=== PATIENT | male | born 1965 | race Caucasian/White ===

== ENCOUNTER → 2016-10-18 | Outpatient (REF) | payer MEDICARE, MEDICAID ==
[2016-10-18 15:37] LABS: CALCIUM LEVEL 8.8 MG/DL (8.5-10.1); CREATININE FOR GFR 1.53 MG/DL (0.70-1.30); GLOMERULAR FILTRATION RATE 50.9 (>56); POTASSIUM SERUM 4.2 MEQ/L (3.5-5.1)
[2016-10-18 15:38] LABS: ALBUMIN 3.7 GM/DL (3.2-5.2); ALBUMIN/GLOBULIN RATIO 1.19 (1.00-1.93); BILIRUBIN,TOTAL 0.5 MG/DL (0.2-1.0); MAGNESIUM LEVEL 2.1 MG/DL (1.8-2.4); TOTAL PROTEIN 6.8 GM/DL (6.4-8.2)
== END ==
LOC: M SFHCLACO 08:17
PROVIDERS: ATTEND Physician Assistant
DX: I12.9 Hypertensive chronic kidney disease with stage 1 through stage 4 chronic kidney disease, or unspecified chronic kidney disease (principal); E78.2 Mixed hyperlipidemia; E11.22 Type 2 diabetes mellitus with diabetic chronic kidney disease; E61.2 Magnesium deficiency; E55.9 Vitamin D deficiency, unspecified; N18.3 Chronic kidney disease, stage 3 (moderate); K21.9 Gastro-esophageal reflux disease without esophagitis; E87.6 Hypokalemia

== ENCOUNTER → 2017-01-22 | Outpatient (REF) | payer MEDICARE, MEDICAID | LOC: M SFHCLACO 08:06 | PROVIDERS: ATTEND Physician Assistant | DX: I10 Essential (primary) hypertension (principal); E78.2 Mixed hyperlipidemia; E11.9 Type 2 diabetes mellitus without complications; E61.2 Magnesium deficiency; E55.9 Vitamin D deficiency, unspecified; Z53.8 Procedure and treatment not carried out for other reasons ==

== ENCOUNTER → 2017-04-30 | Outpatient (REF) | payer MEDICARE, MEDICAID ==
[2017-04-30 15:19] LABS: ALBUMIN 3.6 GM/DL (3.2-5.2); ALBUMIN/GLOBULIN RATIO 1.2 (1.00-1.93); BILIRUBIN,TOTAL 0.4 MG/DL (0.2-1.0); CREATININE FOR GFR 1.55 MG/DL (0.70-1.30); MAGNESIUM LEVEL 2.1 MG/DL (1.8-2.4); POTASSIUM SERUM 3.9 MEQ/L (3.5-5.1); TOTAL PROTEIN 6.6 GM/DL (6.4-8.2)
== END ==
LOC: M SFHCLACO 09:20
PROVIDERS: ATTEND Physician Assistant
DX: I10 Essential (primary) hypertension (principal); E78.2 Mixed hyperlipidemia; E11.9 Type 2 diabetes mellitus without complications; E61.2 Magnesium deficiency; E55.9 Vitamin D deficiency, unspecified

== ENCOUNTER → 2017-06-18 | Outpatient (REF) | payer MEDICARE, MEDICAID ==
[2017-06-18 15:18] LABS: ALBUMIN 3.6 GM/DL (3.2-5.2); ALBUMIN/GLOBULIN RATIO 1.16 (1.00-1.93); ALKALINE PHOSPHATASE 54 U/L (45-117); ALT/SGPT 23 U/L (12-78); ANION GAP 7 MEQ/L (8-16); AST/SGOT 21 U/L (7-37); BILIRUBIN,TOTAL 0.5 MG/DL (0.2-1.0); BLOOD UREA NITROGEN 21 MG/DL (7-18); CALCIUM LEVEL 9.2 MG/DL (8.5-10.1); CARBON DIOXIDE LEVEL 33 MEQ/L (21-32); CHLORIDE LEVEL 101 MEQ/L (98-107); CHOLESTEROL LEVEL 142 MG/DL (<200); CREATININE FOR GFR 1.32 MG/DL (0.70-1.30); GLOMERULAR FILTRATION RATE > 60.0 (>56); GLUCOSE, FASTING 179 MG/DL (70-105); MAGNESIUM LEVEL 2.1 MG/DL (1.8-2.4); POTASSIUM SERUM 3.9 MEQ/L (3.5-5.1); SODIUM LEVEL 141 MEQ/L (136-145); TOTAL PROTEIN 6.7 GM/DL (6.4-8.2); TRIGLYCERIDES LEVEL 191 MG/DL (<150)
== END ==
LOC: M SFHCLACO 08:33
PROVIDERS: ATTEND Physician Assistant
DX: E78.2 Mixed hyperlipidemia (principal); E11.9 Type 2 diabetes mellitus without complications; I10 Essential (primary) hypertension; E61.2 Magnesium deficiency; E55.9 Vitamin D deficiency, unspecified

== ENCOUNTER → 2017-09-10 | Outpatient (REF) | payer MEDICARE, MEDICAID ==
[2017-09-10 15:45] LABS: TOTAL 25(OH) VITAMIN D 45.9 NG/ML (30.0-100.0)
[2017-09-10 15:46] LABS: ALBUMIN 3.7 GM/DL (3.2-5.2); ALBUMIN/GLOBULIN RATIO 1.28 (1.00-1.93); ALKALINE PHOSPHATASE 51 U/L (45-117); ALT/SGPT 26 U/L (12-78); ANION GAP 8 MEQ/L (8-16); AST/SGOT 24 U/L (7-37); BILIRUBIN,TOTAL 0.6 MG/DL (0.2-1.0); BLOOD UREA NITROGEN 24 MG/DL (7-18); CALCIUM LEVEL 9.1 MG/DL (8.5-10.1); CARBON DIOXIDE LEVEL 29 MEQ/L (21-32); CHLORIDE LEVEL 101 MEQ/L (98-107); CHOLESTEROL LEVEL 124 MG/DL (<200); CHOLESTEROL RISK RATIO 5.166 (<5); CREATININE FOR GFR 1.66 MG/DL (0.70-1.30); GLOMERULAR FILTRATION RATE 46.2 (>56); GLUCOSE, FASTING 166 MG/DL (70-100); HDL CHOLESTEROL 24 MG/DL (>40); LDL CHOLESTEROL 66.4 MG/DL (<100); MAGNESIUM LEVEL 2.1 MG/DL (1.8-2.4); NON-HDL-C 100 MG/DL; POTASSIUM SERUM 4.1 MEQ/L (3.5-5.1); SODIUM LEVEL 138 MEQ/L (136-145); TOTAL PROTEIN 6.6 GM/DL (6.4-8.2); TRIGLYCERIDES LEVEL 168 MG/DL (<150)
[2017-09-10 15:57] LABS: ESTIMATED AVERAGE GLUCOSE 235 MG/DL (60-110); HEMOGLOBIN A1c 9.8 %
== END ==
LOC: M SFHCLACO 09:16
DX: E78.2 Mixed hyperlipidemia (principal); I10 Essential (primary) hypertension; E11.9 Type 2 diabetes mellitus without complications; E61.2 Magnesium deficiency; E55.9 Vitamin D deficiency, unspecified
CPT/HCPCS: 83735

== ENCOUNTER → 2017-12-19 | Outpatient (REF) | payer MEDICARE, MEDICAID ==
[2017-12-19 15:55] LABS: ALBUMIN 3.8 GM/DL (3.2-5.2); ALBUMIN/GLOBULIN RATIO 1.19 (1.00-1.93); ALKALINE PHOSPHATASE 52 U/L (45-117); ALT/SGPT 20 U/L (12-78); ANION GAP 7 MEQ/L (8-16); AST/SGOT 20 U/L (7-37); BILIRUBIN,TOTAL 0.3 MG/DL (0.2-1.0); BLOOD UREA NITROGEN 22 MG/DL (7-18); CALCIUM LEVEL 8.5 MG/DL (8.5-10.1); CARBON DIOXIDE LEVEL 27 MEQ/L (21-32); CHLORIDE LEVEL 109 MEQ/L (98-107); CHOLESTEROL LEVEL 150 MG/DL (<200); CREATININE FOR GFR 1.29 MG/DL (0.70-1.30); GLOMERULAR FILTRATION RATE > 60.0 (>56); GLUCOSE, FASTING 120 MG/DL (70-100); HDL CHOLESTEROL 25 MG/DL (>40); LDL CHOLESTEROL 89.2 MG/DL (<100); MAGNESIUM LEVEL 2.3 MG/DL (1.8-2.4); NON-HDL-C 125 MG/DL; POTASSIUM SERUM 4.1 MEQ/L (3.5-5.1); SODIUM LEVEL 143 MEQ/L (136-145); TRIGLYCERIDES LEVEL 179 MG/DL (<150)
[2017-12-19 16:00] LABS: TOTAL 25(OH) VITAMIN D 50.5 NG/ML (30.0-100.0)
[2017-12-19 16:43] LABS: ESTIMATED AVERAGE GLUCOSE 146 MG/DL (60-110); HEMOGLOBIN A1c 6.7 %
== END ==
LOC: M SFHCLACO 08:17
DX: E78.2 Mixed hyperlipidemia (principal); I10 Essential (primary) hypertension; E11.9 Type 2 diabetes mellitus without complications; E61.2 Magnesium deficiency; E55.9 Vitamin D deficiency, unspecified
CPT/HCPCS: 83735

== ENCOUNTER → 2018-03-13 | Outpatient (REF) | payer MEDICARE, MEDICAID ==
[2018-03-13 15:01] LABS: ALBUMIN 3.4 GM/DL (3.2-5.2); ALBUMIN/GLOBULIN RATIO 1.03 (1.00-1.93); ALKALINE PHOSPHATASE 55 U/L (45-117); ALT/SGPT 30 U/L (12-78); ANION GAP 10 MEQ/L (8-16); AST/SGOT 22 U/L (7-37); BILIRUBIN,TOTAL 0.4 MG/DL (0.2-1.0); BLOOD UREA NITROGEN 21 MG/DL (7-18); CALCIUM LEVEL 9.4 MG/DL (8.5-10.1); CARBON DIOXIDE LEVEL 29 MEQ/L (21-32); CHLORIDE LEVEL 106 MEQ/L (98-107); CHOLESTEROL LEVEL 142 MG/DL (<200); CHOLESTEROL RISK RATIO 4.896 (<5); CREATININE FOR GFR 1.25 MG/DL (0.70-1.30); GLOMERULAR FILTRATION RATE > 60.0 (>56); GLUCOSE, FASTING 124 MG/DL (70-100); HDL CHOLESTEROL 29 MG/DL (>40); LDL CHOLESTEROL 87.8 MG/DL (<100); NON-HDL-C 113 MG/DL; POTASSIUM SERUM 4.3 MEQ/L (3.5-5.1); SODIUM LEVEL 145 MEQ/L (136-145); TOTAL PROTEIN 6.7 GM/DL (6.4-8.2); TRIGLYCERIDES LEVEL 126 MG/DL (<150)
[2018-03-13 15:03] LABS: TOTAL 25(OH) VITAMIN D 55.2 NG/ML (30.0-100.0)
[2018-03-13 15:11] LABS: ESTIMATED AVERAGE GLUCOSE 154 MG/DL (60-110)
== END ==
LOC: M SFHCLACO 08:15
DX: E78.2 Mixed hyperlipidemia (principal); E11.22 Type 2 diabetes mellitus with diabetic chronic kidney disease; E61.2 Magnesium deficiency; E55.9 Vitamin D deficiency, unspecified; N18.3 Chronic kidney disease, stage 3 (moderate)
CPT/HCPCS: 83735

== ENCOUNTER → 2018-04-17 | Outpatient (REF) | payer MEDICARE, MEDICAID | LOC: M SFHCLACO 17:37 | DX: R21 Rash and other nonspecific skin eruption (principal); L29.9 Pruritus, unspecified | CPT/HCPCS: 88305 ==

== ENCOUNTER 2019-10-04 19:12 | Emergency (ER) | payer MEDICARE, MEDICAID ==
[2019-10-04] MEDS ORDERED: OMEP10CASR PO (19:45)
[2019-10-04] MEDS ORDERED: PRED20TA PO (19:45)
[2019-10-04] MEDS ORDERED: TRAM50TA2 PO (19:45)
[2019-10-04] MEDS ORDERED: MAGN200T10 PO (19:45)
[2019-10-04] MEDS ORDERED: JARD1TAB PO (19:45)
[2019-10-04] MEDS ORDERED: FENO200C PO (19:45)
[2019-10-04] MEDS ORDERED: SIMV20TA22 PO (19:45)
[2019-10-04] MEDS ORDERED: CYCL10TA PO (19:45)
[2019-10-04] MEDS ORDERED: LISI40TA PO (19:45)
[2019-10-04] MEDS ORDERED: METO100T5 PO (19:45)
[2019-10-04] MEDS ORDERED: FAMO40TA3 PO (19:45)
[2019-10-04] MEDS ORDERED: GABA600T4 PO (19:45)
[2019-10-04] MEDS ORDERED: GLIM4TAB5 PO (19:45)
[2019-10-04] MEDS ORDERED: AMLO5TAB6 PO (19:45)
[2019-10-04] MEDS ORDERED: ECOT81TA5 PO (19:45)
[2019-10-04] MEDS ORDERED: MORPHINE 10 MG/ML 1ML VIAL (J2270) IM ONE (20:15)
--- NOTE | 2019-10-04 20:56 | REPVR ---
PROCEDURE INFORMATION: Exam: CT Lumbar Spine Without Contrast Exam date and time: 10/04/2019 8:19 PM Age: 54 years old Clinical indication: Low back pain; Additional info: Severe pain, right radiculopathy TECHNIQUE: Imaging protocol: Computed tomography images of the lumbar spine without contrast. Radiation optimization: All CT scans at this facility use at least one of these dose optimization techniques: automated exposure control; mA and/or kV adjustment per patient size (includes targeted exams where dose is matched to clinical indication); or iterative reconstruction. COMPARISON: No relevant prior studies available. FINDINGS: Vertebrae: Disc space narrowing at L2-L3 and to a lesser degree L3-L4 with a retrolisthesis of L2 on L3. Discs/Spinal canal/Neural foramina: There is a moderate to severe central central spinal stenosis at L2-L3 secondary to diffuse annular bulging, thickened ligamentum flavum without facet joint arthropathy. There is a severe central central spinal stenosis at L3-L4 secondary to diffuse annular bulging, thickened ligamentum flavum with mild facet joint arthropathy. There is a severe central central spinal stenosis at L4-L5 secondary to diffuse annular bulging, thickened ligamentum flavum with mild facet joint arthropathy. Bulging annulus L5-S1 without significant neural compromise. Soft tissues: Unremarkable. IMPRESSION: Moderate to severe central spinal stenosis L2-L3, severe central spinal stenosis L3-L4, severe central spinal stenosis at L4-L5. Electronically signed by: Mati Linder On 10/04/2019 20:55:47 PM
[2019-10-04] MEDS ORDERED: PERC5TAB12 PO (21:45)
[2019-10-04 21:57] VITALS: BP 173/89
== END 2019-10-04 21:59 | disposition home or self-care (01) ==
LOC: M ED 19:12
DX: M51.16 Intervertebral disc disorders with radiculopathy, lumbar region (principal); M48.061 Spinal stenosis, lumbar region without neurogenic claudication; Z91.030 Bee allergy status
CPT/HCPCS: 72131; 99284; J2270

== ENCOUNTER 2019-10-07 02:18 | Inpatient (IN) | payer MEDICARE, MEDICAID ==
[~2019-10-07] VITALS: Ht 175.3 cm; Wt 126.4 kg
[~2019-10-07 02:18] MED LIST: AMLO5TAB6 PO; CYCL10TA PO; ECOT81TA5 PO; FAMO40TA3 PO; FENO200C PO; GABA600T4 PO; GLIM4TAB5 PO; JARD1TAB PO; LISI40TA PO; MAGN200T10 PO; METO100T5 PO; OMEP10CASR PO; PERC5TAB12 PO; PRED20TA PO; SIMV20TA22 PO; TRAM50TA2 PO
[2019-10-07 03:02] LABS: BASO # 0.1 10^3/uL (0.0-0.2); BASO % 0.7 % (0.0-1.0); EOS # 0.2 10^3/uL (0.0-0.5); EOS % 1.1 % (0.0-3.0); HEMATOCRIT 62.8 % (42.0-52.0); LYMPH # 3.7 10^3/uL (1.5-5.0); LYMPH % 23.6 % (24.0-44.0); MEAN CORPUSCULAR HEMOGLOBIN 28.1 pg (27.0-33.0); MEAN CORPUSCULAR VOLUME 87.8 fl (80.0-96.0); MONO # 1.3 10^3/uL (0.0-0.8); MONO % 8.4 % (0.0-5.0); NEUTROPHILS # 10.2 10^3/uL (1.5-8.5); NEUTROPHILS % 65.1 % (36.0-66.0); PLATELET COUNT, AUTOMATED 250 10^3/uL (150-450); RED BLOOD COUNT 7.15 10^6/uL (4.30-6.10); WHITE BLOOD COUNT 15.7 10^3/uL (4.0-10.0)
[2019-10-07 03:11] LABS: INR 1.01
[2019-10-07 03:12] LABS: PARTIAL THROMBOPLASTIN TIME 27.2 SECONDS (25.0-38.4)
[2019-10-07 03:13] LABS: HEMOGLOBIN 20.1 g/dl (13.5-17.5)
[2019-10-07] MEDS ORDERED: KETAMINE HCL IV ONE (03:15)
[2019-10-07] MEDS ORDERED: NS 500 ML IV ONE (03:15)
[2019-10-07] MEDS ORDERED: NS IV ONE (03:15)
--- NOTE | 2019-10-07 03:32 | IPNPDOC ---
Text Note Date of Service The patient was seen on 10/07/19. NOTE Time of service 5:25 AM Mr. Doyle is a 54 yr old smoker w a PMH of HTN, Dyslipidemia, NIDDM, & obesity who is admitted for management of acute on chronic back pain. 1.Back pain - pain meds / f/u w Dr.Mollison Sarah 2.Erythrocytosis likely 2/2 smoking and untreated sleep apnea - smoking cessation education / plans to have overnight sleep study soon rest per 's note VS,Fishbone, I+O VS, Fishbone, I+O Laboratory Tests 10/07/19 02:44 Vital Signs Date Time Temp Pulse Resp B/P (MAP) Pulse Ox O2 Delivery O2 Flow Rate FiO2 10/07/19 02:29 98.1 125 20 142/79 (100) 98 Room Air DOMENICO MARES MD Oct 07, 2019 03:32
[2019-10-07 03:38] LABS: BLOOD UREA NITROGEN 16 MG/DL (7-18); CALCIUM LEVEL 9.3 MG/DL (8.5-10.1); CARBON DIOXIDE LEVEL 30 MEQ/L (21-32); CHLORIDE LEVEL 106 MEQ/L (98-107); CREATININE FOR GFR 1.23 MG/DL (0.70-1.30); GLOMERULAR FILTRATION RATE > 60.0 (>56); GLUCOSE, FASTING 196 MG/DL (70-100); POTASSIUM SERUM 4.4 MEQ/L (3.5-5.1); SODIUM LEVEL 146 MEQ/L (136-145)
[2019-10-07] MEDS: LIDOCAINE 5% (LIDODERM) PATCH TD SCH (03:45)
[2019-10-07] MEDS ORDERED: JARD1TAB PO (03:46)
[2019-10-07] MEDS ORDERED: AMLO5TAB6 PO (03:46)
[2019-10-07] MEDS ORDERED: LISI40TA PO (03:46)
[2019-10-07] MEDS ORDERED: PERC5TAB12 PO (03:46)
[2019-10-07] MEDS ORDERED: FENO200C PO (03:46)
[2019-10-07] MEDS ORDERED: ASPI-161 PO (03:46)
[2019-10-07] MEDS ORDERED: ZOCO20TA PO (03:46)
[2019-10-07] MEDS ORDERED: METO100T5 PO (03:46)
[2019-10-07] MEDS ORDERED: MAGN400T3 PO (03:46)
[2019-10-07] MEDS ORDERED: GLIM4TAB5 PO (03:46)
[2019-10-07] MEDS ORDERED: OMEP1CAP73 PO (03:46)
[2019-10-07] MEDS ORDERED: FAMO40TA3 PO (03:46)
[2019-10-07] MEDS ORDERED: GABA600T4 PO ×2 (03:46)
[2019-10-07] MEDS ORDERED: TRAM50TA2 PO (03:47)
[2019-10-07] MEDS ORDERED: CYCL10TA PO (03:47)
[2019-10-07 04:45] VITALS: BP 140/68
[2019-10-07] MEDS ORDERED: GLUCOSE 4 GM CHEW TABLET PO PRN (04:45)
[2019-10-07] MEDS ORDERED: PERCOCET 5MG/325MG TAB PO PRN ×2 (04:45→07:45)
[2019-10-07] MEDS ORDERED: GLUCAGON FOR INJ 1 MG VIAL (J1610) SC PRN (04:45)
[2019-10-07] MEDS ORDERED: DEXTROSE 50% 50 ML SYRINGE IV PRN (04:45)
--- NOTE | 2019-10-07 04:56 | HPEPDOC ---
[facility] Medical History & Physical Date of Admission Oct 07, 2019 Date of Service: Oct 07, 2019 Primary Care Physician: Lori Cruz PA-C, LAC Attending Physician: DOMENICO MARES MD History and Physical CHIEF COMPLAINT: Intractable back pain HISTORY OF PRESENT ILLNESS: Patient is a 54-year-old male who presents to the emergency room after a 3 week long history of severe lower back pain with radiation down his right leg. Patient states that he has history of chronic back pain however, about 3 weeks ago he woke up and started experiencing worsening back pain and radiation of the pain down his right leg. Patient states it has been difficult to walk as when he puts his leg on the ground, it becomes very sore. Patient says that he feels like his leg is going to give out on him. Patient says the pain goes down the outside of his right leg down to the hauser bone. Patient recently went to see his primary care provider for prednisone. Decrease his prednisone did not help with his pain. Patient says today his pain so bad that he unable to walk so he came to the emergency room. In the emergency room, patient is not ill and after medication, his pain is slightly better contr ol however, he says it is difficult for him to walk and move around on the stretcher. Patient is also found to have an elevated hemoglobin on laboratory studies. Patient states that he had a nocturnal pulse oximetry test that was positive and they wanted to come be fully evaluated for sleep study however, this has not been done yet due to the patient's back pain. REVIEW OF SYSTEMS: General: Patient denies fevers, chills, night sweats, unintentional weight loss HEENT: Patient denies headaches, changes in vision, sore throat. Cardiovascular: Patient denies chest pain, chest pressure, or palpitations Respiratory: Patient denies shortness of breath, cough GI: Patient denies abdominal pain, nausea, vomiting, diarrhea : Patient denies pain or difficulty with urination Neurological: Patient denies numbness or tingling in extremities Extremities: Patient endorses pain going down his right extremity Skin: Patient denies any rashes or lesions. Hematologic: Patient denies any easy bruising. Lymphatic: Patient denies any lumps in his neck, axilla, or groin. PAST MEDICAL HISTORY: 1. Hypertension. 2. Hyperlipidemia. 3. Chronic back pain. 4. Right kidney disease stage III 5. Diabetes mellitus type 2 6. Gastroesophageal reflux disease PAST SURGICAL HISTORY: 1. Orchidopexy 1975 SOCIAL HISTORY: Patient lives at home as well as and smokes one pack of cigarettes a day. Patient denies drinking or illicit drug use. 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 HOME MEDICATIONS: Please see below. PHYSICAL EXAMINATION: VITAL SIGNS: Temperature 98.1, pulse 109, respiratory rate 20, blood pressure 154/76, pulse oximetry 95% on room air. General: Alert and oriented male patient who is lying on his left side on the stretcher. Patient appeared to be in any acute distress while laying still both having a difficult time moving around the stretcher. HEENT: Normocephalic, atraumatic, moist mucous membranes, posterior pharynx was nonerythematous. Neck: No lymphadenopathy, thyromegaly Cardiac: Regular rate and rhythm, no murmurs, normal S1, normal S2 Pulm: Clear to auscultation bilaterally. No wheezes, rhonchi, rales Abd: Nondistended, nontender to palpation, normal bowel sounds Ext: No edema bilateral lower extremities Neuro: Patient equal strength in lower extremities bilaterally. Patient reported equal sensation to light touch in the lower extremity. Patient's reflexes were unable to be elicited as patient had a difficult time relaxing Skin: Skin of the arms, lower legs, abdomen, back, head and neck were examined did not show any evidence of rash or lesions. LABORATORY DATA: See below. IMAGING: Imaging is been performed. A CT of the lumbar spine performed on 10/04/2019 during an emergency room visit a few days prior to admission was reported to show moderate to severe central spinal stenosis L2-L3, severe central spinal stenosis L3-L4, severe central spinal stenosis at L4-L5 MICROBIOLOGY: Please see below. ASSESSMENT: Patient is a 54-year-old male presents to the emergency department with intractable back pain. Patient was also found to have elevated hemoglobin on laboratory studies. Patient will be admitted to medical surgical floor for further workup and pain control. PLAN: 1. Intractable back pain. Patient is a chronic back pain for many years however, he says he is having an acute flare of his pain over the last 3 weeks. Patient was unable to walk earlier today which is primarily in the emergency room. Patient will receive pain control with tramadol or Percocet depending on his pain level. Patient's gabapentin has been increased to 900 mg 3 times a day. Duloxetine can be added if the patient still is having difficulties with pain. 1 dose of 800 mg ibuprofen is also been ordered. Patient was given ketamine in the emergency department which did help with his pain. Orthopedic surgery has been consulted and will see the patient. Physical therapy will work with the patient as well. 2. Polycythemia patient's hemoglobin was 20.1 and hematocrit of 62.8. Patient also leukocytosis of 15.7 however, usually with hemoconcentration secondary to dehydration, patient's hemoglobin still very elevated. Patient does appear to have sleep apnea however, has not had a formal sleep study to fully diagnose this. Patient did have a positive nocturnal oximetry study performed in the past few weeks. Patient is also a smoker smoking about 1 pack a day. Patient is on low-dose aspirin prior to coming to the hospital which can help lower his risk for adverse events secondary to his polycythemia. Repeat CBC has been ordered fo r her noon time today 3. Diabetes mellitus. Patient is on a consistent carbohydrate diet, will receive fingersticks before meals at bedtime and is on a sliding scale. Follow up A1C. 4. Hypertension. Patient's home medications of amlodipine 5 mg, lisinopril 80 mg, metoprolol 100 mg twice a day have been ordered. 5. Hyperlipidemia. Home simvastatin 20 mg will be continued. 6. Reflux. Continue home Pepcid and omeprazole. 7. Morbid Obesity. He has co-existing DM and BENJAMIN which complicate his care. He can follow up with his PCP for a recreation superintendent consult and possibly Bariatric surgery referal. 8. DVT prophylaxis: Lovenox 9. CODE STATUS: Full code Vital Signs Vital Signs Date Time Temp Pulse Resp B/P (MAP) Pulse Ox O2 Delivery O2 Flow Rate FiO2 10/07/19 04:30 109 20 154/76 (102) 95 Room Air 10/07/19 02:29 98.1 Laboratory Data Labs 24H Laboratory Tests 2 10/07/19 02:44: Immature Granulocyte % (Auto) 1.1, Neutrophils (%) (Auto) 65.1, Lymphocytes (%) (Auto) 23.6L, Monocytes (%) (Auto) 8.4H, Eosinophils (%) (Auto) 1.1, Basophils (%) (Auto) 0.7, Neutrophils # (Auto) 10.2H, Lymphocytes # (Auto) 3.7, Monocytes # (Auto) 1.3H, Eosinophils # (Auto) 0.2, Basophils # (Auto) 0.1, Nucleated Red Blood Cells % (auto) 0.0, Prothrombin Time 13.0, Prothromb Time International Ratio 1.01, Activated Partial Thromboplast Time 27.2, Anion Gap 10, Glomerular Filtration Rate > 60.0, Calcium Level 9.3 CBC/BMP Laboratory Tests 10/07/19 02:44 Home Medications Scheduled Amlodipine Besylate (Amlodipine Besylate) 5 Mg Tablet, 5 MG PO DAILY Aspirin (Aspirin EC) 81 Mg Tablet.dr, 81 MG PO DAILY Empagliflozin (Jardiance) 10 Mg Tablet, 10 MG PO DAILY Famotidine (Famotidine) 40 Mg Tablet, 20 MG PO DAILY Fenofibrate,Micronized (Fenofibrate) 200 Mg Capsule, 200 MG PO QHS Gabapentin (Gabapentin) 600 Mg Tablet, 600 MG PO BID MORNING AND NOON Gabapentin (Gabapentin) 600 Mg Tablet, 600 MG PO QHS Glimepiride (Glimepiride) 4 Mg Tablet, 4 MG PO BID Lisinopril (Lisinopril) 40 Mg Tablet, 80 MG PO DAILY Magnesium Oxide (Magnesium Oxide) 400 Mg Tablet, 400 MG PO DAILY Metoprolol Tartrate (Metoprolol Tartrate) 100 Mg Tablet, 100 MG PO BID Omeprazole (Omeprazole) 20 Mg Capsule.dr, 20 MG PO DAILY Simvastatin (Zocor) 20 Mg Tablet, 20 MG PO QHS Scheduled PRN Cyclobenzaprine HCl (Cyclobenzaprine HCl) 10 Mg Tablet, 10 MG PO TID PRN for MUSCLE SPASMS ON HOLD FOR NOW Oxycodone HCl/Acetaminophen (Percocet 5-325 mg Tablet) 1 Each Tablet, 1 TAB PO Q6H PRN for PAIN Tramadol HCl (Tramadol HCl) 50 Mg Tablet, 100 MG PO TID PRN for PAIN ON HOLD FOR NOW Allergies Coded Allergies: bee venom protein (honey bee) (Verified Allergy, Severe, ANAPHYLAXIS, 10/04/19) spider venom (Verified Allergy, Severe, ANAPHYLAXIS, 10/04/19) A-FIB/CHADSVASC A-FIB History Current/History of A-Fib/PAF?: No GME ATTESTATION GME ATTESTATION My faculty preceptor for this patient encounter was physically present during the encounter and was fully available. All aspects of the patient interview, examination, medical decision making process, and medical care plan development were reviewed and approved by the faculty preceptor. The faculty preceptor is aware and concurs with the plan as stated in the body of this note and will attest to such by his/her cosignature. ATTENDING NOTE I reviewed and admitted to Dr. Hills's note and agree with the findings as documented. MAGALIS HILLS DO Oct 07, 2019 04:56 DOMENICO MARES MD Oct 07, 2019 05:36
[2019-10-07] MEDS: traMADol 50 MG TAB PO PRN ×2 (05:24→20:47)
[2019-10-07] MEDS ORDERED: IBUPROFEN 800 MG TAB PO ONE (05:30)
[2019-10-07] MEDS: ENOXAPARIN 40 MG/0.4 ML SYRINGE (J1650) SC SCH (08:28)
[2019-10-07] MEDS: HumaLOG INSULIN (NovoLOG) PER UNIT SC SCH ×4 (08:28→20:47)
[2019-10-07] MEDS: lisinopriL 40 MG TAB PO SCH (08:29)
[2019-10-07] MEDS: GABAPENTIN 300 MG CAP PO SCH ×3 (08:29→20:47)
[2019-10-07] MEDS: OMEPRAZOLE 20 MG CAP PO SCH (08:29)
[2019-10-07] MEDS: ASPIRIN 81 MG ENTERIC TAB PO SCH (08:29)
[2019-10-07] MEDS: FAMOTIDINE 20 MG TAB PO SCH (08:30)
[2019-10-07] MEDS: METOPROLOL TARTRATE 100 MG TAB PO SCH ×2 (08:30→20:46)
[2019-10-07] MEDS: amLODIPine 5 MG TAB PO SCH (08:30)
[2019-10-07] MEDS: MAGNESIUM OXIDE 400 MG TAB (MAG-OX) PO SCH (08:30)
--- NOTE | 2019-10-07 08:47 | CR ---
DATE OF CONSULTATION: 10/07/2019 CHIEF COMPLAINT: Right leg pain. HISTORY OF PRESENT ILLNESS: This 54-year-old man has had a few weeks now of back pain and right leg symptoms. He has pain going down from the lower back all the way down to the leg mostly on the lateral side down to the dorsolateral foot. He has an appointment see Dr. Boland this Saturday, apparently. Feels like a shooting pain down his leg. It is not associated with any decreased sensation or weakness in legs. He still is able to ambulate to the washroom. He presented to the emergency department late last night. He was admitted to the hospitalist service. He has been started of pain control. He has no bowel or bladder symptoms. No loss of control. No perianal numbness and no constitutional symptoms. PAST MEDICAL HISTORY INCLUDES: 1. Hypertension. 2. Dyslipidemia. 3. Chronic back pain. 4. Chronic kidney disease (CKD) stage III. 5. Type 2 diabetes 6. Gastroesophageal reflux disease (GERD). MEDICATIONS INCLUDE: - amlodipine - ASA - Empagliflozin - famotidine - fenofibrate - gabapentin - glimepiride - lisinopril - magnesium oxide - metoprolol - omeprazole - simvastatin ALLERGIES: Bee venom and spider venom. SOCIAL HISTORY: The patient lives at home. Smokes a pack of cigarettes a day. Denies alcohol or drug use. PHYSICAL EXAM: Vital signs: Stable. The patient is laying on his left side in bed. He has only slight lumbar spine tenderness in the midline around L4, otherwise no steps or gaps. No pain off midline. He has normal sensations to his lower extremities, L2-S1. Good strength from L2 to S1. Slightly diminished on the right side due to pain at L3. No clonus. Plantar's are downgoing. Reflexes include coapt to the knees and ankles. Normal perianal sensation. CT of the lumbar spine was performed 3 days ago on 10/04/2019. This shows moderate to severe central spinal stenosis L2-L3, severe central spinal stenosis L3-L4, severe spinal stenosis at L4-L5. ASSESSMENT/PLAN: This 54-year-old man appears to be having lumbar radiculopathy. He has no obvious signs of cauda equina syndrome. Recommended pain control consultation with pain management as well as the lumbar spine MRI to fully characterize the disc herniations and amount of compression to this. The hospitalist service is actively managing the patient as well. In addition, I recommend consultation with Dr. Boland. I will let him know about the patient as the patient was scheduled to see him on Saturday as well and perhaps he can suggest any other modalities to help control this man's pain and discomfort.
[2019-10-07] MEDS ORDERED: GABAPENTIN 300 MG CAP PO SCH ×2 (09:00→21:00)
[2019-10-07 09:10] LABS: HEMATOCRIT 58.7 % (42.0-52.0); HEMOGLOBIN 19.1 g/dl (13.5-17.5); MEAN CORPUSCULAR HGB CONC 32.5 g/dl (32.0-36.5); MEAN CORPUSCULAR VOLUME 86.2 fl (80.0-96.0); PLATELET COUNT, AUTOMATED 232 10^3/uL (150-450); RED BLOOD COUNT 6.81 10^6/uL (4.30-6.10); WHITE BLOOD COUNT 15.1 10^3/uL (4.0-10.0)
[2019-10-07] MEDS: PERCOCET 5MG/325MG TAB PO PRN ×2 (09:20→17:19)
[2019-10-07 09:32] LABS: BLOOD UREA NITROGEN 16 MG/DL (7-18); CALCIUM LEVEL 8.8 MG/DL (8.5-10.1); CARBON DIOXIDE LEVEL 25 MEQ/L (21-32); CHLORIDE LEVEL 107 MEQ/L (98-107); CREATININE FOR GFR 0.91 MG/DL (0.70-1.30); GLOMERULAR FILTRATION RATE > 60.0 (>56); GLUCOSE, FASTING 167 MG/DL (70-100); MAGNESIUM LEVEL 2.5 MG/DL (1.8-2.4); POTASSIUM SERUM 4.1 MEQ/L (3.5-5.1); SODIUM LEVEL 141 MEQ/L (136-145)
[2019-10-07 12:08] LABS: HEMATOCRIT 58.2 % (42.0-52.0); HEMOGLOBIN 18.8 g/dl (13.5-17.5); MEAN CORPUSCULAR HEMOGLOBIN 28.2 pg (27.0-33.0); MEAN CORPUSCULAR HGB CONC 32.3 g/dl (32.0-36.5); MEAN CORPUSCULAR VOLUME 87.4 fl (80.0-96.0); PLATELET COUNT, AUTOMATED 266 10^3/uL (150-450); RED BLOOD COUNT 6.66 10^6/uL (4.30-6.10); WHITE BLOOD COUNT 14.2 10^3/uL (4.0-10.0)
--- NOTE | 2019-10-07 12:35 | REPVR ---
PROCEDURE INFORMATION: Exam: MR Lumbar Spine Without Contrast. Exam date and time: 10/07/2019 11:19 AM Age: 54 years old Clinical indication: Lumbago with sciatica; Patient HX: Severe pain down right leg. ; Additional info: Back pain / spinal stenosis TECHNIQUE: Imaging protocol: Multiplanar magnetic resonance images of the lumbar spine without intravenous contrast. COMPARISON: CT Spine, lumbar w/o contrast 10/04/2019 8:03 PM FINDINGS: Vertebrae: No acute compression fracture is seen. Bone marrow signal is within normal limits. Spinal cord: The conus medullaris terminates at the T12-L1 level. There is no evidence of arachnoiditis or cauda equina compression. L1-L2: There is mild facet arthropathy. There is no significant spinal canal or neural foraminal stenosis. L2-L3: There is mild circumferential disc bulging and facet arthropathy. This is causing mild spinal canal stenosis and minimal bilateral neural foraminal narrowing. L3-L4: There is minimal circumferential disc bulging and mild facet arthropathy. This is causing minimal spinal canal stenosis and minimal left neural foraminal narrowing. L4-L5: There is moderate circumferential disc bulging with a superimposed right foraminal disc protrusion. Right foraminal disc material is migrating cranially roughly 7 mm from the level of the disc. Moderate facet arthropathy, congenitally shortened pedicles, and thickening of the ligamentum flavum is also noted. This is causing moderate spinal canal stenosis severe right neural foraminal narrowing, and moderate left neural foraminal narrowing. There is compression of the exiting right L4 nerve within the neural foramina. L5-S1: Mild circumferential disc bulging with a superimposed tiny central disc protrusion and central annular fissure. Mild facet arthropathy is also noted. There is no significant spinal canal or neural foraminal stenosis. Soft tissues: Subcutaneous edema is present in the lower back. IMPRESSION: 1. Degenerative changes of the lumbar spine as discussed above 2. Right foraminal disc protrusion at L4-L5 causing severe foraminal stenosis and compression of the exiting L4 nerve Electronically signed by: Khris Garzon On 10/07/2019 12:35:38 PM
--- NOTE | 2019-10-07 13:48 | IPNPDOC ---
Text Note Date of Service The patient was seen on 10/07/19. NOTE Subjective: Patient is a 54-year-old male with a PMHx HTN, DLP, DM2, Chronic back pain, CKD3, GERD who presented to the ER with complaints of severe lower back pain with radiation down his right leg. Patient notes that he's been extrinsic chronic back pain and has been following with pain management in [place]. . She was scheduled to receive a joint injection on Saturday. However, he noted his pain was intolerable and presented to the emergency room for further evaluation. Patient has been admitted to hospitalist service for further evaluation and treatment. Orthopedic surgery was called on consultation. Pain management was consulted as well. Patient was seen and examined at the bedside. Currently, patient reports asymptomatic significant back pain medications and continued. He was started on Percocet with minimal relief. Patient denies chest pain, shortness breath, palpitations, nausea, vomiting and pain, diarrhea, or urinary discomfort. Objective: Vitals (See below) General: Lying in bed, no acute distress, comfortable, AAOx3 HEENT: NC, AT CVS: +S1S2 Lungs: Fair air entry b/l, no appreciable wheezing, rhonchi, rales Abdomen: Soft, ND, NT Extremities: - Edema, - Calf tenderness Assessment and plan: Intractable back pain - likely 2/2 severe spinal stenosis - Presented to the ER with persistent back pain and reported inability to ambulate; given his history of chronic back pain - Follows with pain management as an outpatient and [place]; was scheduled to receive an injection this Saturday - CT L Spine 10/04: Moderate to severe central spinal stenosis L2-L3, severe central spinal stenosis L3-L4, severe central spinal stenosis at L4-L5. - MRI L spine 10/04: 1. Degenerative changes of the lumbar spine as discussed above 2. Right foraminal disc protrusion at L4-L5 causing severe foraminal stenosis and compression of the exiting L4 nerve - c/w current pain regimen - Orthopedic surgery on consultation; appreciate their input - Pain management consulted Polycythemia - likely 2/2 BENJAMIN - Patient is scheduled to receive his formal sleep study in [place] - c/w ASA 81 DM2 - A1c of 10.0 - c/w ISS HTN - BP well controlled - c/w Amlodipine, Lisinopril, Metoprolol DLP - c/w Simvastatin Morbid Obesity - Complicating medical care GERD - c/w Omeprazole and Famotidine DVT prophylaxis - c/w Lovenox VS,Fishbone, I+O VS, Fishbone, I+O Laboratory Tests 10/07/19 02:44 10/07/19 08:52 10/07/19 11:43 Vital Signs Date Time Temp Pulse Resp B/P (MAP) Pulse Ox O2 Delivery O2 Flow Rate FiO2 10/07/19 11:29 16 10/07/19 08:30 107 140/68 10/07/19 04:45 94 Room Air 10/07/19 04:45 98.2 I&O- Last 24 Hours up to 6 AM 10/07/19 06:00 Intake Total 910.3 ml Balance 910.3 ml PIYUSH KEENAN MD Oct 07, 2019 13:48
[2019-10-07 14:00] VITALS: BP 151/85
--- NOTE | 2019-10-07 15:23 | CR.PDOC ---
[facility] Pain Clinic Consultation General Date of Consultation: 10/07/19 Chief Complaint The patient is a 54-year-old male admitted with a reason for visit of Intractable Low Back Pain. History of Present Illness 54 year old male with intractable back pain. He was started on Percocet upon becoming inpatient and feels this medication has been helpful in reducing his pain. He is also currently taking Gabapentin and Flexeril. He does admit to an upcoming appt with a pain clinic. Home Medications Scheduled Amlodipine Besylate (Amlodipine Besylate) 5 Mg Tablet, 5 MG PO DAILY, (Reported) Aspirin (Aspirin EC) 81 Mg Tablet.dr, 81 MG PO DAILY, (Reported) Empagliflozin (Jardiance) 10 Mg Tablet, 10 MG PO DAILY, (Reported) Famotidine (Famotidine) 40 Mg Tablet, 20 MG PO DAILY, (Reported) Fenofibrate,Micronized (Fenofibrate) 200 Mg Capsule, 200 MG PO QHS, (Reported) Gabapentin (Gabapentin) 600 Mg Tablet, 600 MG PO BID, (Reported) MORNING AND NOON Gabapentin (Gabapentin) 600 Mg Tablet, 600 MG PO QHS, (Reported) Glimepiride (Glimepiride) 4 Mg Tablet, 4 MG PO BID, (Reported) Lisinopril (Lisinopril) 40 Mg Tablet, 80 MG PO DAILY, (Reported) Magnesium Oxide (Magnesium Oxide) 400 Mg Tablet, 400 MG PO DAILY, (Reported) Metoprolol Tartrate (Metoprolol Tartrate) 100 Mg Tablet, 100 MG PO BID, (Reported) Omeprazole (Omeprazole) 20 Mg Capsule.dr, 20 MG PO DAILY, (Reported) Simvastatin (Zocor) 20 Mg Tablet, 20 MG PO QHS, (Reported) Scheduled PRN Cyclobenzaprine HCl (Cyclobenzaprine HCl) 10 Mg Tablet, 10 MG PO TID PRN for MUSCLE SPASMS, (Reported) ON HOLD FOR NOW Oxycodone HCl/Acetaminophen (Percocet 5-325 mg Tablet) 1 Each Tablet, 1 TAB PO Q6H PRN for PAIN, (Reported) Tramadol HCl (Tramadol HCl) 50 Mg Tablet, 100 MG PO TID PRN for PAIN, (Reported) ON HOLD FOR NOW Allergies Coded Allergies: bee venom protein (honey bee) (Verified Allergy, Severe, ANAPHYLAXIS, 10/04/19) spider venom (Verified Allergy, Severe, ANAPHYLAXIS, 10/04/19) Social History Social History Denies tobacco, alcohol, or illicit substance abuse. Review of Systems Subjective Constitutional: Denies: chills, fever HEENT: Denies: head aches, vision problems Skin: Denies: rash Cardiovascular: Denies: chest pain Gastrointestinal: Denies: abdominal pain, constipation, diarrhea Musculoskeletal: Reports: other (Back pain) Physical Examination Physical Examination Vital Signs/I&O Vital Signs Date Time Temp Pulse Resp B/P (MAP) Pulse Ox O2 Delivery O2 Flow Rate FiO2 10/07/19 14:00 98.4 90 18 151/85 (107) 95 Room Air I&O- Last 24 Hours up to 6 AM 10/07/19 06:00 Intake Total 910.3 ml Balance 910.3 ml General Exam: Positive: alert, attentive Chest Exam: Positive: Clear to auscultation Heart Exam: Positive: Regular rate and rhythm Laboratory Data Labs 24H Laboratory Tests 2 10/07/19 02:44: Immature Granulocyte % (Auto) 1.1, Neutrophils (%) (Auto) 65.1, Lymphocytes (%) (Auto) 23.6L, Monocytes (%) (Auto) 8.4H, Eosinophils (%) (Auto) 1.1, Basophils (%) (Auto) 0.7, Neutrophils # (Auto) 10.2H, Lymphocytes # (Auto) 3.7, Monocytes # (Auto) 1.3H, Eosinophils # (Auto) 0.2, Basophils # (Auto) 0.1, Nucleated Red Blood Cells % (auto) 0.0, Prothrombin Time 13.0, Prothromb Time International Ratio 1.01, Activated Partial Thromboplast Time 27.2, Anion Gap 10, Glomerular Filtration Rate > 60.0, Calcium Level 9.3 10/07/19 05:10: Bedside Glucose (Misc Panel) 146H 10/07/19 05:36: Estimated Mean Plasma Glucose 240H, Hemoglobin A1c 10.0 10/07/19 08:52: Nucleated Red Blood Cells % (auto) 0.0, Anion Gap 9, Glomerular Filtration Rate > 60.0, Calcium Level 8.8, Magnesium Level 2.5H 10/07/19 11:32: Bedside Glucose (Misc Panel) 183H 10/07/19 11:43: Nucleated Red Blood Cells % (auto) 0.0 CBC/BMP Laboratory Tests 10/07/19 02:44 10/07/19 08:52 10/07/19 11:43 FSBS Laboratory Tests Test 10/07/19 05:10 10/07/19 11:32 Range/Units Bedside Glucose (Misc Panel) 146 183 70-105 MG/DL Assessment 54 year old male with low back pain. Given presenting symtpoms recommend continued use of Percocet and that the patient be seen on an outpatient basis for potential procedures. Patient states he has an upcoming appt with a pain clinic on Saturday that he says was from a referral received in the ER. He was encouraged to discuss referral to a pain clinic with his PCP should there be some confusion surrounding the appt on Saturday. Recommendation and Plan Thank you, for allowing us to participate in the care of your patient. Should you have any questions we will be glad to discuss this with you at any time please contact us here at the pain center at [phone]. KLAUS ROSAS Oct 07, 2019 15:23
[2019-10-07] MEDS: SIMVASTATIN 20 MG TAB PO SCH (20:46)
[2019-10-07] MEDS: **NOTE PATIENT COMMENT** MISC XX SCH (20:49)
[2019-10-07 22:00] VITALS: BP 150/63
[2019-10-08] MEDS: PERCOCET 5MG/325MG TAB PO PRN ×2 (00:24→04:42)
[2019-10-08 06:00] VITALS: BP 148/87
[2019-10-08 06:53] LABS: HEMATOCRIT 59.7 % (42.0-52.0); HEMOGLOBIN 19.3 g/dl (13.5-17.5); MEAN CORPUSCULAR HEMOGLOBIN 28.6 pg (27.0-33.0); MEAN CORPUSCULAR HGB CONC 32.3 g/dl (32.0-36.5); MEAN CORPUSCULAR VOLUME 88.4 fl (80.0-96.0); PLATELET COUNT, AUTOMATED 225 10^3/uL (150-450); RED BLOOD COUNT 6.75 10^6/uL (4.30-6.10); WHITE BLOOD COUNT 12.5 10^3/uL (4.0-10.0)
[2019-10-08 07:15] LABS: BLOOD UREA NITROGEN 16 MG/DL (7-18); CALCIUM LEVEL 8.9 MG/DL (8.5-10.1); CARBON DIOXIDE LEVEL 29 MEQ/L (21-32); CHLORIDE LEVEL 104 MEQ/L (98-107); CREATININE FOR GFR 0.93 MG/DL (0.70-1.30); GLOMERULAR FILTRATION RATE > 60.0 (>56); GLUCOSE, FASTING 120 MG/DL (70-100); POTASSIUM SERUM 4.1 MEQ/L (3.5-5.1); SODIUM LEVEL 139 MEQ/L (136-145)
[2019-10-08] MEDS: HumaLOG INSULIN (NovoLOG) PER UNIT SC SCH ×4 (08:42→20:51)
[2019-10-08] MEDS: ASPIRIN 81 MG ENTERIC TAB PO SCH (08:42)
[2019-10-08] MEDS: FAMOTIDINE 20 MG TAB PO SCH (08:42)
[2019-10-08] MEDS: GABAPENTIN 300 MG CAP PO SCH ×3 (08:42→20:49)
[2019-10-08] MEDS: METOPROLOL TARTRATE 100 MG TAB PO SCH ×2 (08:43→20:50)
[2019-10-08] MEDS: amLODIPine 5 MG TAB PO SCH (08:43)
[2019-10-08] MEDS: traMADol 50 MG TAB PO PRN (08:43)
[2019-10-08] MEDS: CYCLOBENZAPRINE 10 MG TAB PO PRN (08:43)
[2019-10-08] MEDS: MAGNESIUM OXIDE 400 MG TAB (MAG-OX) PO SCH (08:43)
[2019-10-08] MEDS: OMEPRAZOLE 20 MG CAP PO SCH (08:43)
[2019-10-08] MEDS: ENOXAPARIN 40 MG/0.4 ML SYRINGE (J1650) SC SCH (08:44)
[2019-10-08] MEDS: lisinopriL 40 MG TAB PO SCH (08:44)
[2019-10-08] MEDS: LIDOCAINE 5% (LIDODERM) PATCH TD SCH (08:44)
[2019-10-08] MEDS ORDERED: FLUBLOK(EGG FREE)(QUAD)INFLUENZA VACC 0.5ML SYRINGE (90682)18YRS&OLDER IM ONE (09:00)
[2019-10-08] MEDS ORDERED: HYDROmorphone 2 MG TAB PO PRN (10:00)
[2019-10-08] MEDS ORDERED: DILA2TAB6 PO ×2 (12:34→12:35)
[2019-10-08] MEDS: MORPHINE 2 MG/ML 1ML VIAL (J2270) IV PRN ×3 (13:00→23:18)
[2019-10-08 14:00] VITALS: BP 150/87
--- NOTE | 2019-10-08 14:17 | IPNPDOC ---
Text Note Date of Service The patient was seen on 10/08/19. NOTE Subjective: Patient is a 54-year-old male with a PMHx HTN, DLP, DM2, Chronic back pain, CKD3, GERD who presented to the ER with complaints of severe lower back pain with radiation down his right leg. Patient notes that he's been extrinsic chronic back pain and has been following with pain management in [place]. She was scheduled to receive a joint injection on Saturday. However, he noted his pain was intolerable and presented to the emergency room for further evaluation. Patient has been admitted to hospitalist service for further evaluation and tr eatment. Orthopedic surgery was called on consultation. Pain management was consulted as well. Patient was seen and examined at the bedside. Patient is still experiencing severe back pain. Patient has been having difficulty working with PT because of limiting pain. He denied any CP, SOB or palpitations. Denies constipation or urinary discomfort. Objective: Vitals (See below) General: Lying in bed, no acute distress, comfortable, AAOx3 HEENT: NC, AT CVS: +S1S2 Lungs: Fair air entry b/l, -w/r/r Abdomen: Soft, non-distended, non-tender Extremities: no evidence of edema, - Calf tenderness Assessment and plan: Intractable back pain - likely 2/2 severe spinal stenosis - Still reports significant back pain - Follows with pain management as an outpatient and [place]; was scheduled to receive an injection this Saturday - CT L Spine 10/04: Moderate to severe central spinal stenosis L2-L3, severe central spinal stenosis L3-L4, severe central spinal stenosis at L4-L5. - MRI L spine 10/04: 1. Degenerative changes of the lumbar spine as discussed above 2. Right foraminal disc protrusion at L4-L5 causing severe foraminal stenosis and compression of the exiting L4 nerve - c/w current pain regimen; adjust to long acting and short acting medications - Orthopedic surgery on consultation; appreciate their input - Pain management consulted Polycythemia - likely 2/2 BENJAMIN - Patient is scheduled to receive his formal sleep study in [place] - c/w ASA 81 DM2 - A1c of 10.0 - c/w ISS HTN - BP well controlled - c/w Amlodipine, Lisinopril, Metoprolol DLP - c/w Simvastatin Morbid Obesity - Complicating medical care GERD - c/w Omeprazole and Famotidine DVT prophylaxis - c/w Lovenox VS,Fishbone, I+O VS, Fishbone, I+O Laboratory Tests 10/08/19 06:25 Vital Signs Date Time Temp Pulse Resp B/P (MAP) Pulse Ox O2 Delivery O2 Flow Rate FiO2 10/08/19 13:10 18 10/08/19 08:43 99 148/87 10/08/19 06:00 98.2 98 Room Air I&O- Last 24 Hours up to 6 AM 10/08/19 05:59 Intake Total 2400 ml Output Total 200 ml Balance 2200 ml PIYUSH KEENAN MD Oct 08, 2019 14:17
[2019-10-08] MEDS: oxyCODONE 5MG TAB PO PRN ×2 (16:21→20:50)
[2019-10-08] MEDS: **NOTE PATIENT COMMENT** MISC XX SCH (20:51)
[2019-10-08] MEDS: MORPHINE 15 MG SA TAB PO SCH (20:51)
[2019-10-08] MEDS: SIMVASTATIN 20 MG TAB PO SCH (20:51)
[2019-10-08 21:00] VITALS: BP 188/90
[2019-10-08 22:00] VITALS: BP 130/90
[2019-10-09] MEDS: traMADol 50 MG TAB PO PRN ×2 (01:01→11:46)
[2019-10-09] MEDS: MORPHINE 2 MG/ML 1ML VIAL (J2270) IV PRN ×2 (02:32→08:51)
[2019-10-09] MEDS: oxyCODONE 5MG TAB PO PRN ×3 (04:51→16:22)
[2019-10-09 06:00] VITALS: BP 139/85
[2019-10-09] MEDS: HumaLOG INSULIN (NovoLOG) PER UNIT SC SCH ×4 (07:30→20:00)
[2019-10-09 08:42] LABS: HEMATOCRIT 57.3 % (42.0-52.0); HEMOGLOBIN 18.6 g/dl (13.5-17.5); MEAN CORPUSCULAR HEMOGLOBIN 28.2 pg (27.0-33.0); MEAN CORPUSCULAR HGB CONC 32.5 g/dl (32.0-36.5); MEAN CORPUSCULAR VOLUME 86.8 fl (80.0-96.0); PLATELET COUNT, AUTOMATED 208 10^3/uL (150-450); WHITE BLOOD COUNT 12.7 10^3/uL (4.0-10.0)
[2019-10-09] MEDS: ENOXAPARIN 40 MG/0.4 ML SYRINGE (J1650) SC SCH (08:51)
[2019-10-09] MEDS: METOPROLOL TARTRATE 100 MG TAB PO SCH ×2 (08:51→20:05)
[2019-10-09] MEDS: MAGNESIUM OXIDE 400 MG TAB (MAG-OX) PO SCH (08:52)
[2019-10-09] MEDS: amLODIPine 5 MG TAB PO SCH (08:52)
[2019-10-09] MEDS: ASPIRIN 81 MG ENTERIC TAB PO SCH (08:52)
[2019-10-09] MEDS: lisinopriL 40 MG TAB PO SCH (08:52)
[2019-10-09] MEDS: LIDOCAINE 5% (LIDODERM) PATCH TD SCH (08:52)
[2019-10-09] MEDS: FAMOTIDINE 20 MG TAB PO SCH (08:52)
[2019-10-09] MEDS: GABAPENTIN 300 MG CAP PO SCH ×3 (08:52→20:04)
[2019-10-09] MEDS: OMEPRAZOLE 20 MG CAP PO SCH (08:53)
[2019-10-09 09:09] LABS: BLOOD UREA NITROGEN 13 MG/DL (7-18); CALCIUM LEVEL 8.7 MG/DL (8.5-10.1); CARBON DIOXIDE LEVEL 27 MEQ/L (21-32); CHLORIDE LEVEL 100 MEQ/L (98-107); CREATININE FOR GFR 0.86 MG/DL (0.70-1.30); GLOMERULAR FILTRATION RATE > 60.0 (>56); GLUCOSE, FASTING 167 MG/DL (70-100); POTASSIUM SERUM 4.2 MEQ/L (3.5-5.1); SODIUM LEVEL 136 MEQ/L (136-145)
[2019-10-09] MEDS: MORPHINE 15 MG SA TAB PO SCH ×2 (09:38→20:05)
--- NOTE | 2019-10-09 09:41 | IPN ---
DATE: 10/08/2019 I saw the patient on 10/08/2019 for right lower extremity radiculopathy, reviewed an MRI which reflected some foraminal protrusion. I talked to the patient about the MRI. We talked about having him see pain management clinic for epidurals and injections and further considerations for surgery depending on how he does with those. This patient had been seen in initial consultation by Dr. Regis Stewart.
[2019-10-09] MEDS: CYCLOBENZAPRINE 10 MG TAB PO PRN (11:45)
[2019-10-09 14:00] VITALS: BP 144/84
--- NOTE | 2019-10-09 18:36 | IPNPDOC ---
Text Note Date of Service The patient was seen on 10/09/19. NOTE S: Pt examined at bedside. He continues to have extensive pain in his back radiating down his leg into his toes. Is noted to be crying when attempting to work with physical therapy. Otherwise doing well. Denies any chest pain, shortness of breath, nausea, vomiting, abdominal pain. No reported events overnight. PE: Vitals: see below General: uncomfortable in bed from RLE pain, A&Ox3 HEENT: NCAT, EOMI, anicteric sclera, MMM CV: RRR, no murmurs or clicks or rub. No edema RESP: CTAB, no w/r/r/ ABD: soft, NT, ND. Benign EXTREMITIES: 2+ radial pulses b/l, able to move all extremities, RLE tender to palpation from hip downwards all the way to toes, worse with movement MSK: RLE which is 4/5 in strength - able to hold against gravity and some resistance, but then drops quickly due to pain. 5/5 strength in remaining 3 limbs. No visible muscular atrophy NEURO: no focal deficits or acute changes. Sensation intact throughout in all limbs & hands/feet A/P: 54-year-old male with a PMHx HTN, DLP, DM2, Chronic back pain, GERD who presented to the ER with complaints of severe lower back pain with radiation down his right leg. He has had chronic low back pain for years, but now worsening along with new onset right lower extremity pain radiating down over the past 1 month. Denies any acute injuries. Following with pain management in [place] and was scheduled to receive a joint injection on Monday 10/09, but pain was too severe and led him to the hospital. Ortho & Pain management have been consulted. 1. Intractable back pain likely 2/[address] L Spine 10/04: Moderate to severe central spinal stenosis L2-L3, severe central spinal stenosis L3-L4, severe central spinal stenosis at L4-L5. MRI L spine 10/04: 1. Degenerative changes of the lumbar spine as discussed above 2. Right foraminal disc protrusion at L4-L5 causing severe foraminal stenosis and compression of the exiting L4 nerve Normally follows with [place] pain clinic. Reports improvement in past with steroid injections and was scheduled for another in [place] today Pain management in the hospital consulted, recommended Percocet Ortho consulted: no surgery while inpatient. Symptomatic management for now On long-acting and short acting pain medicine & gabapentin 2. Leukocytosis Appears to be chronic dating back to 2011 No suspected infection. Patient asymptomatic and afebrile otherwise doing well Will consider peripheral smear and further workup 3. Polycythemia Possibly 2/2 BENJAMIN. Coag panel unremarkable Awaiting formal sleep study in [place]. Will consider peripheral smear as noted above On ASA 81 mg GERD-on Pepcid and omeprazole Hypertension-controlled on Norvasc and lisinopril and Lopressor Dyslipidemia-continue statin and ASA 81 mg NIDDM 2-uncontrolled with A1c 10. Home Jardiance on hold. Insulin sliding scale and patient. Consistent carb diet. Will require outpatient follow-up and adjustment of diabetic meds Morbid obesity-BMI 41 complicates care DVT ppx: Lovenox subcutaneous DISPO: Pending clinical improvement. Will recheck out againto pain management as patient will likely benefit from epidural. Work with PT. VS,Chris, I+O VS, Chris, I+O Laboratory Tests 10/09/19 08:07 Vital Signs Date Time Temp Pulse Resp B/P (MAP) Pulse Ox O2 Delivery O2 Flow Rate FiO2 10/09/19 16:52 18 10/09/19 14:00 97.9 97 144/84 (104) 92 Room Air I&O- Last 24 Hours up to 6 AM 10/09/19 05:59 Intake Total 2820 ml Output Total 1475 ml Balance 1345 ml GME ATTESTATION GME ATTESTATION My faculty preceptor for this patient encounter was physically present during the encounter and was fully available. All aspects of the patient interview, examination, medical decision making process, and medical care plan development were reviewed and approved by the faculty preceptor. The faculty preceptor is aware and concurs with the plan as stated in the body of this note and will attest to such by his/her cosignature. ATTENDING NOTE I, Gabriela Keenan, have independently examined this patient and performed my own physical exam, as well as reviewed the documentation and edited where necessary. I have discussed in detail with the resident / student the findings and plan of treatment as documented by the resident / student and edited their note. I agree with their findings and treatment plan and have edited their documentation. I will continue to follow the patient during this hospital stay. SHANNEN DESOUZA DO Oct 09, 2019 18:36 GABRIELA KEENAN MD Oct 09, 2019 18:47
[2019-10-09] MEDS: SIMVASTATIN 20 MG TAB PO SCH (20:05)
[2019-10-09] MEDS: **NOTE PATIENT COMMENT** MISC XX SCH (20:06)
[2019-10-09 22:00] VITALS: BP 166/95
[2019-10-10] MEDS: oxyCODONE 5MG TAB PO PRN ×3 (00:19→12:36)
[2019-10-10] MEDS: traMADol 50 MG TAB PO PRN (03:08)
[2019-10-10 06:00] VITALS: BP 164/89
[2019-10-10] MEDS: CYCLOBENZAPRINE 10 MG TAB PO PRN (06:19)
[2019-10-10 06:42] LABS: HEMATOCRIT 59.1 % (42.0-52.0); HEMOGLOBIN 19.5 g/dl (13.5-17.5); MEAN CORPUSCULAR HEMOGLOBIN 28.6 pg (27.0-33.0); MEAN CORPUSCULAR VOLUME 86.8 fl (80.0-96.0); PLATELET COUNT, AUTOMATED 201 10^3/uL (150-450); RED BLOOD COUNT 6.81 10^6/uL (4.30-6.10)
[2019-10-10 07:01] LABS: BLOOD UREA NITROGEN 13 MG/DL (7-18); CALCIUM LEVEL 8.9 MG/DL (8.5-10.1); CARBON DIOXIDE LEVEL 29 MEQ/L (21-32); CHLORIDE LEVEL 99 MEQ/L (98-107); CREATININE FOR GFR 0.88 MG/DL (0.70-1.30); GLOMERULAR FILTRATION RATE > 60.0 (>56); GLUCOSE, FASTING 162 MG/DL (70-100); POTASSIUM SERUM 3.9 MEQ/L (3.5-5.1); SODIUM LEVEL 136 MEQ/L (136-145)
[2019-10-10] MEDS: HumaLOG INSULIN (NovoLOG) PER UNIT SC SCH ×2 (08:07→12:00)
[2019-10-10] MEDS: ENOXAPARIN 40 MG/0.4 ML SYRINGE (J1650) SC SCH (08:07)
[2019-10-10] MEDS: GABAPENTIN 300 MG CAP PO SCH ×2 (08:07→12:36)
[2019-10-10] MEDS: lisinopriL 40 MG TAB PO SCH (08:08)
[2019-10-10 08:10] VITALS: BP 156/103
[2019-10-10] MEDS: amLODIPine 5 MG TAB PO SCH (08:10)
[2019-10-10] MEDS: MAGNESIUM OXIDE 400 MG TAB (MAG-OX) PO SCH (08:11)
[2019-10-10] MEDS: ASPIRIN 81 MG ENTERIC TAB PO SCH (08:11)
[2019-10-10] MEDS: LIDOCAINE 5% (LIDODERM) PATCH TD SCH (08:11)
[2019-10-10] MEDS: FAMOTIDINE 20 MG TAB PO SCH (08:11)
[2019-10-10] MEDS: OMEPRAZOLE 20 MG CAP PO SCH (08:11)
[2019-10-10] MEDS: METOPROLOL TARTRATE 100 MG TAB PO SCH (08:20)
[2019-10-10] MEDS: MORPHINE 15 MG SA TAB PO SCH (08:20)
--- NOTE | 2019-10-10 08:41 | IPN ---
DATE: 10/10/2019 Dmitri is seen on [address] [place] [id number]. He was admitted for pain control. He had severe foraminal stenosis on the right side at L4-L5 compressing the exiting L4 nerve. He is receiving physical therapy. He was getting out of bed when I saw him today, using a walker. PHYSICAL EXAM: Afebrile. Vital signs stable. LUNGS: Clear. HEART: Regular rate and rhythm. ABDOMEN: Soft. Nontender. No peripheral edema. LABS: Look unremarkable and are stable. IMPRESSION: Severe low back pain. PLAN: Continue physical therapy and pain control. When he is able to be discharged per physical therapy, then we will send him home with plans for outpatient attention to his compressed nerve.
--- NOTE | 2019-10-10 15:36 | DSES ---
DATE OF ADMISSION: 10/07/2019 DATE OF DISCHARGE: 10/10/2019 PRINCIPAL DIAGNOSIS: Intractable low back pain with right lower extremity radiculopathy. CONSULTS: Dr. Regis Stewart - orthopedics, Dr. Boland - orthopedics, pain clinic. HISTORY: Patient admitted with intractable low back pain. See details in history and physical on admission. HOSPITAL COURSE: MRI scan showed severe foraminal stenosis, right side, with L4-L5 compression of the exiting L4 nerve. He received physical therapy, analgesics and consultation from orthopedics. It was felt that he would benefit from epidural injections, which apparently he gets in [place] and then if those fail, consider neurosurgical intervention. He passed physical therapy, so he will be discharged to home today. His exam and labs were already dictated earlier today. DISPOSITION: He is discharged home in improved and stable condition. He is being discharged on Dilaudid 2 mg four times a day as needed with maximum daily dose of three with nine tablets prescribed. Continue amlodipine 5 mg daily, aspirin 81 mg daily, cyclobenzaprine 10 mg three times a day as needed, Jardiance 10 mg daily, famotidine 20 mg daily, fenofibrate 200 mg nightly, gabapentin 600 mg three times a day, glimepiride 4 mg twice a day, lisinopril 80 mg daily, Mag-Ox 400 mg daily, metoprolol tartrate 100 mg twice a day, omeprazole 20 mg daily, simvastatin 20 mg nightly, tramadol 100 mg three times a day as needed. He received a flu shot. He will followup with his primary care provider, Lori Cruz, in [place] office in a week. Followup with orthopedics per their office. Followup with the pain clinic in [place] where he goes for injections.
[2019-10-10] MEDS ORDERED: GABA600T4 PO (22:29)
[2019-10-10] MEDS ORDERED: DILA2TAB6 PO (22:29)
== END 2019-10-10 14:04 | disposition home or self-care (01) | DRG 552 ==
LOC: M ED 02:18 → M ED INP 03:27 → ENRESERVDT 04:34 → ENRESERVTM 04:34 → M MS5PR 05:00
PROVIDERS: ADMIT Internal Medicine; ATTEND Family Medicine
DX: M48.061 Spinal stenosis, lumbar region without neurogenic claudication (principal); Z68.41 Body mass index [BMI] 40.0-44.9, adult; M51.16 Intervertebral disc disorders with radiculopathy, lumbar region; M54.9 Dorsalgia, unspecified; E11.9 Type 2 diabetes mellitus without complications; I12.9 Hypertensive chronic kidney disease with stage 1 through stage 4 chronic kidney disease, or unspecified chronic kidney disease; E66.01 Morbid (severe) obesity due to excess calories; E78.5 Hyperlipidemia, unspecified; N18.3 Chronic kidney disease, stage 3 (moderate); K21.9 Gastro-esophageal reflux disease without esophagitis; F17.210 Nicotine dependence, cigarettes, uncomplicated; G47.33 Obstructive sleep apnea (adult) (pediatric); Z79.82 Long term (current) use of aspirin; Z79.899 Other long term (current) drug therapy; Z91.030 Bee allergy status; Z91.038 Other insect allergy status; D75.1 Secondary polycythemia

== ENCOUNTER 2019-10-10 20:46 | Inpatient (IN) | payer MEDICARE, MEDICAID ==
[~2019-10-10] VITALS: Ht 175.3 cm; Wt 127.4 kg
[~2019-10-10 20:46] MED LIST changes: +ASPI-161 PO; +DILA2TAB6 PO; +MAGN400T3 PO; +OMEP1CAP73 PO; +ZOCO20TA PO
[2019-10-10] MEDS ORDERED: METHOCARBAMOL 1,000 MG/10 ML VIAL (J2800) IV ONE (22:00)
[2019-10-10] MEDS ORDERED: DILA2TAB6 PO (22:29)
[2019-10-10] MEDS ORDERED: GABA600T4 PO (22:29)
--- NOTE | 2019-10-10 22:41 | HPEPDOC ---
[facility] Medical History & Physical Date of Admission Oct 10, 2019 Date of Service: Oct 10, 2019 Primary Care Physician: Lori Cruz PA-C, LAC Attending Physician: DOMENICO MARES MD History and Physical CHIEF COMPLAINT: Low back pain HISTORY OF PRESENT ILLNESS: Patient is a 54-year-old male presents to the emergency room after feeling history of severe back pain with radiation down his right leg. Patient was recently admitted in to [facility] on 10/07/2019 and was discharged earlier today, 10/10/2019 for his chronic lower back pain. Patient says that he was getting some relief from the medications that he was receiving here however, the patient was due to get spinal injections on Saturday with Dr. Caceres however, he was discharged prior to that as he p assed physical therapy. Patient says he was only home for a few hours but was still in severe pain and unable to get comfortable. Because of this, he called the ambulance who brought him back to the hospital. PAST MEDICAL HISTORY: 1. Hypertension. 2. Hyperlipidemia. 3. Chronic back pain. 4. Chronic kidney disease stage III 5. Diabetes mellitus type 2 6. Gastroesophageal reflux disease PAST SURGICAL HISTORY: 1. Orchidopexy in 1975. SOCIAL HISTORY: Patient lives at home with his . Patient smokes 1 pack cigarettes per day. Patient denies drinking alcohol or illicit drug use. 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 FAMILY HISTORY: Patient's parents passed with diabetes. ALLERGIES: Please see below. REVIEW OF SYSTEMS: General: Patient denies fevers, chills, night sweats, unintentional weight loss HEENT: Patient denies headaches, changes in vision, sore throat. Cardiovascular: Patient denies chest pain, chest pressure, or palpitations Respiratory: Patient denies shortness of breath, cough GI: Patient denies abdominal pain, nausea, vomiting, diarrhea : Patient denies pain or difficulty with urination Neurological: Patient denies numbness or tingling in extremities Extremities: Patient endorses back pain as well as pain down his right leg as described above. Skin: Patient denies any rashes or lesions. Hematologic: Patient denies any easy bruising. Lymphatic: Patient denies any lumps in his neck, axilla, or groin. HOME MEDICATIONS: Please see below. PHYSICAL EXAMINATION: VITAL SIGNS: Temperature 97.8, pulse 111, respiratory rate 20, blood pressure 130/63, pulse oximetry 97% on room air. General: Patient is alert and oriented obese male who was laying on the stretcher in the ER when I walked in. While lying down, the patient does not appear to be in any acute distress. When the patient would move, he would cry out in pain. HEENT: Normocephalic, atraumatic, moist mucous membranes, posterior pharynx was nonerythematous. Neck: No lymphadenopathy, thyromegaly, or carotid bruits. Cardiac: Tachycardic rate with a regular rhythm, no murmurs, normal S1, normal S2 Pulm: Clear to auscultation bilaterally. No wheezes, rhonchi, rales Abd: Nondistended, nontender to palpation, normal bowel sounds Ext: No edema bilateral lower extremities Neuro: No gross neurological defects. Patient had equal sensation to light touch in his lower extremities. Skin: Skin of the arms, lower legs, abdomen, back, head and neck were examined did not show any evidence of rash or lesions. LABORATORY DATA: Pending IMAGING: No new imaging has been performed. Patient had lumbar CT performed within the past week. MICROBIOLOGY: Please see below. ASSESSMENT: She is a 54-year-old male who presents to the emergency department after being discharged earlier today with intractable back pain. Patient still has elevated hemoglobin, labs or studies however, this has improved since last admission. PLAN: 1. Intractable back pain. Patient has had chronic back pain for many years, this is an acute flare. The plan was for patient to have epidural injections per Dr. Boland of orthopedics surgery. Dr. Caceres was unable to perform this procedure until 10/12/2019. Patient will be admitted to the medical surgical floor. Pain regimen of 15 mg of MS Contin twice a day, 10 mg oxycodone every 4 hours when necessary for severe pain and tramadol 100 mg 3 times a day when necessary have been ordered as this was a regimen he was on prior to being discharged. 2. Polycythemia. Patient's erythropoietin level was normal. Patient does have a nocturnal oximetry study a few weeks ago that was positive however, he has not had any further sleep study and does not wear CPAP. Patient smokes a pack of cigarettes a day. We will continue to monitor. 3. SIRS criteria met. Patient does not appear ill but does have a leukocytosis, tachycardia, and tachypnea. The patient was closely monitored for possible sepsis his vitals begin to worsen. 4. Nicotine dependence. Smoking cessation 1999. 5. Diabetes mellitus. Patient is on a consistent carbohydrate diet, will receive fingersticks before meals and at bedtime and is on sliding scale. 6. Hypertension. Patient's home medications of amlodipine 5 mg, lisinopril 80 mg, and metoprolol 20 mg twice a day have been ordered. 7. Hyperlipidemia. Hold simvastatin 20 mg we continued. 8. Reflux. Continue on Pepcid and omeprazole. 9. Morbid obesity. He has coexisting diabetes mellitus and obstructive sleep apnea which is complicating his care. He can follow up with his PCP for dietitian consult possible bariatric surgery referral. 10. DVT prophylaxis: Lovenox. 11. CODE STATUS: Full code Home Medications Scheduled Amlodipine Besylate (Amlodipine Besylate) 5 Mg Tablet, 5 MG PO DAILY Aspirin (Aspirin EC) 81 Mg Tablet.dr, 81 MG PO BID Empagliflozin (Jardiance) 10 Mg Tablet, 10 MG PO DAILY Famotidine (Famotidine) 40 Mg Tablet, 20 MG PO DAILY Fenofibrate,Micronized (Fenofibrate) 200 Mg Capsule, 200 MG PO QHS Gabapentin (Gabapentin) 600 Mg Tablet, 1,200 MG PO TID Glimepiride (Glimepiride) 4 Mg Tablet, 4 MG PO BID Lisinopril (Lisinopril) 40 Mg Tablet, 80 MG PO DAILY Magnesium Oxide (Magnesium Oxide) 400 Mg Tablet, 400 MG PO DAILY Metoprolol Tartrate (Metoprolol Tartrate) 100 Mg Tablet, 100 MG PO BID Omeprazole (Omeprazole) 20 Mg Capsule.dr, 20 MG PO DAILY Simvastatin (Zocor) 20 Mg Tablet, 20 MG PO QHS Scheduled PRN Cyclobenzaprine HCl (Cyclobenzaprine HCl) 10 Mg Tablet, 10 MG PO TID PRN for MUSCLE SPASMS Hydromorphone HCl (Dilaudid) 2 Mg Tablet, 2 MG PO QIDP PRN for pain Tramadol HCl (Tramadol HCl) 50 Mg Tablet, 100 MG PO TID PRN for PAIN Allergies Coded Allergies: bee venom protein (honey bee) (Verified Allergy, Severe, ANAPHYLAXIS, 10/04/19) spider venom (Verified Allergy, Severe, ANAPHYLAXIS, 10/04/19) A-FIB/CHADSVASC A-FIB History Current/History of A-Fib/PAF?: No GME ATTESTATION GME ATTESTATION My faculty preceptor for this patient encounter was physically present during the encounter and was fully available. All aspects of the patient interview, examination, medical decision making process, and medical care plan development were reviewed and approved by the faculty preceptor. The faculty preceptor is aware and concurs with the plan as stated in the body of this note and will attest to such by his/her cosignature. ATTENDING NOTE Time of service 10:40 PM MAGALIS FRANCISCO DO Oct 10, 2019 22:41 DOMENICO MARES MD Oct 10, 2019 23:35
[2019-10-10] MEDS ORDERED: DEXTROSE 50% 50 ML SYRINGE IV PRN (22:45)
[2019-10-10] MEDS ORDERED: GLUCAGON FOR INJ 1 MG VIAL (J1610) SC PRN (22:45)
[2019-10-10] MEDS ORDERED: GLUCOSE 4 GM CHEW TABLET PO PRN (22:45)
[2019-10-10] MEDS ORDERED: MAALOX 30 ML SUSP *UDC PO PRN (22:45)
[2019-10-11 00:21] VITALS: BP 152/100
[2019-10-11] MEDS: HumaLOG INSULIN (NovoLOG) PER UNIT SC SCH ×5 (00:27→20:15)
[2019-10-11] MEDS: DOCUSATE SODIUM 100 MG CAP PO SCH ×3 (00:28→20:28)
[2019-10-11] MEDS: METOPROLOL TARTRATE 100 MG TAB PO SCH ×3 (00:28→20:27)
[2019-10-11] MEDS: SIMVASTATIN 20 MG TAB PO SCH ×2 (00:28→20:26)
[2019-10-11] MEDS: MORPHINE 15 MG SA TAB PO SCH ×3 (00:29→20:27)
[2019-10-11] MEDS: GABAPENTIN 300 MG CAP PO SCH ×4 (00:29→20:28)
[2019-10-11] MEDS: ASPIRIN 81 MG ENTERIC TAB PO SCH ×3 (00:29→20:27)
[2019-10-11] MEDS: oxyCODONE 5MG TAB PO PRN ×4 (02:33→21:53)
[2019-10-11] MEDS: traMADol 50 MG TAB PO PRN (05:14)
[2019-10-11 06:11] VITALS: BP 168/87
[2019-10-11 06:43] LABS: HEMATOCRIT 57.1 % (42.0-52.0); HEMOGLOBIN 18.8 g/dl (13.5-17.5); MEAN CORPUSCULAR HEMOGLOBIN 28.4 pg (27.0-33.0); MEAN CORPUSCULAR HGB CONC 32.9 g/dl (32.0-36.5); MEAN CORPUSCULAR VOLUME 86.3 fl (80.0-96.0); PLATELET COUNT, AUTOMATED 194 10^3/uL (150-450); RED BLOOD COUNT 6.62 10^6/uL (4.30-6.10); WHITE BLOOD COUNT 10.4 10^3/uL (4.0-10.0)
[2019-10-11 07:09] LABS: BLOOD UREA NITROGEN 15 MG/DL (7-18); CALCIUM LEVEL 8.8 MG/DL (8.5-10.1); CARBON DIOXIDE LEVEL 27 MEQ/L (21-32); CHLORIDE LEVEL 103 MEQ/L (98-107); CREATININE FOR GFR 0.96 MG/DL (0.70-1.30); GLOMERULAR FILTRATION RATE > 60.0 (>56); GLUCOSE, FASTING 199 MG/DL (70-100); MAGNESIUM LEVEL 2.1 MG/DL (1.8-2.4); POTASSIUM SERUM 4.2 MEQ/L (3.5-5.1); SODIUM LEVEL 137 MEQ/L (136-145)
[2019-10-11] MEDS: FAMOTIDINE 20 MG TAB PO SCH (08:59)
[2019-10-11] MEDS: ENOXAPARIN 40 MG/0.4 ML SYRINGE (J1650) SC SCH (08:59)
[2019-10-11] MEDS: lisinopriL 40 MG TAB PO SCH (08:59)
[2019-10-11] MEDS: MAGNESIUM OXIDE 400 MG TAB (MAG-OX) PO SCH (09:00)
[2019-10-11] MEDS: amLODIPine 5 MG TAB PO SCH (09:03)
[2019-10-11] MEDS: OMEPRAZOLE 20 MG CAP PO SCH (09:03)
[2019-10-11 14:00] VITALS: BP 130/82
[2019-10-11 20:00] VITALS: BP 141/97
[2019-10-11 20:25] VITALS: BP 140/100
--- NOTE | 2019-10-11 20:43 | IPNPDOC ---
Date Seen The patient was seen on 10/11/19. Progress Note SUBJECTIVE: 54 y.o male w/ PMH of CKD, HTN, HLD, DM & chronic back pain was recently admitted for worsening chronic back pain and discharged yesterday. He was only home for a few hours & returned due to severe back pain. He has had chronic back pain for years which was well controlled up until a few weeks ago when it worsened after a fall. Imaging showed spinal stenosis, he was evaluated by Dr. Boland and epidural injections were recommended which he have worked well in the past. He was scheduled for an epidural injection tomorrow but couldn't tolerate the pain. He was restarted on his pain regimen prior to discharge and pain is reasonably well controlled at this time. He continues to have low back pain with radiation down his RLE with any movement. He denies any SOB, CP, N/V/D or abdominal pain. 10 point review of system is negative except for above. PHYSICAL EXAMINATION: VITAL SIGNS: Please see below. GENERAL: no distress HEENT: moist mucus membranes CARDIOVASCULAR: S1, S2 RESPIRATORY: clear to auscultation ABDOMINAL: soft, non-tender, non-distended, +BS EXTREMITIES: ROM intact NEUROLOGICAL: A&O x3, no focal deficits, RLE weakness due to pain PSYCHOLOGICAL: calm LABORATORY DATA, IMAGING STUDIES, MICROBIOLOGY: Please see below. ASSESSMENT AND PLAN: 54 y.o male w/ multiple medical comorbidities who has been readmitted for worsening chronic back pain. PROBLEMS: 1. chronic low back pain - recently worsened due to injury, imaging showing moderate/severe stenosis, evaluated by Dr. Boland and epidural injection was recommended, was scheduled to receive it in the outpatient setting tomorrow, will consult provider for epidural tomorrow. continue pain regimen 2. HTN - continue Norvasc, lisinopril & Metoprolol 3. DM - sliding scale insulin with meals & at bedtime 4. erythrocytosis - likely due to undiagnosed BENJAMIN/OHS, recommend outpatient sleep study, no signs/symptoms of hyperviscosity. 5. CKD - creatinine at baseline, will monitor 6. GERD - continue Pepcid & omeprazole DVT prophylaxis - Lovenox GI Prophylaxis - PPI/Pepcid VS, I&O, 24H, Fishbone Vital Signs/I&O Vital Signs Date Time Temp Pulse Resp B/P (MAP) Pulse Ox O2 Delivery O2 Flow Rate FiO2 10/11/19 17:55 22 Room Air 10/11/19 14:00 98.0 103 130/82 (98) 96 2.0 I&O- Last 24 Hours up to 6 AM 10/11/19 06:00 Intake Total 300 ml Output Total 800 ml Balance -500 ml Laboratory Data 24H LABS Laboratory Tests 2 10/10/19 23:52: Bedside Glucose (Misc Panel) 195H 10/11/19 00:23: Bedside Glucose (Misc Panel) 191H 10/11/19 06:33: Nucleated Red Blood Cells % (auto) 0.0, Differential Slide Review Report, Peripheral Blood Smear Path Consult PERIPHERAL SMEAR, Anion Gap 7L, Glomerular Filtration Rate > 60.0, Calcium Level 8.8, Magnesium Level 2.1 10/11/19 11:26: Bedside Glucose (Misc Panel) 176H 10/11/19 17:08: Bedside Glucose (Misc Panel) 210H 10/11/19 20:14: CBC/BMP Laboratory Tests 10/11/19 06:33 ELLIS HOGAN MD Oct 11, 2019 20:43
[2019-10-11] MEDS: CYCLOBENZAPRINE 10 MG TAB PO PRN (21:57)
[2019-10-12 06:07] VITALS: BP 136/102
[2019-10-12 06:24] LABS: HEMATOCRIT 58.2 % (42.0-52.0); HEMOGLOBIN 19.2 g/dl (13.5-17.5); MEAN CORPUSCULAR HEMOGLOBIN 28.8 pg (27.0-33.0); MEAN CORPUSCULAR VOLUME 87.3 fl (80.0-96.0); PLATELET COUNT, AUTOMATED 189 10^3/uL (150-450); RED BLOOD COUNT 6.67 10^6/uL (4.30-6.10)
[2019-10-12 06:44] LABS: BLOOD UREA NITROGEN 15 MG/DL (7-18); CALCIUM LEVEL 9.3 MG/DL (8.5-10.1); CARBON DIOXIDE LEVEL 28 MEQ/L (21-32); CHLORIDE LEVEL 101 MEQ/L (98-107); CREATININE FOR GFR 0.92 MG/DL (0.70-1.30); GLOMERULAR FILTRATION RATE > 60.0 (>56); GLUCOSE, FASTING 171 MG/DL (70-100); MAGNESIUM LEVEL 2.1 MG/DL (1.8-2.4); PHOSPHORUS LEVEL 3.3 MG/DL (2.5-4.9); POTASSIUM SERUM 3.9 MEQ/L (3.5-5.1); SODIUM LEVEL 137 MEQ/L (136-145)
[2019-10-12] MEDS: amLODIPine 5 MG TAB PO SCH (08:38)
[2019-10-12] MEDS: GABAPENTIN 300 MG CAP PO SCH ×3 (08:38→21:30)
[2019-10-12] MEDS: MAGNESIUM OXIDE 400 MG TAB (MAG-OX) PO SCH (08:38)
[2019-10-12] MEDS: OMEPRAZOLE 20 MG CAP PO SCH (08:38)
[2019-10-12] MEDS: METOPROLOL TARTRATE 100 MG TAB PO SCH ×2 (08:39→21:31)
[2019-10-12] MEDS: lisinopriL 40 MG TAB PO SCH (08:39)
[2019-10-12] MEDS: FAMOTIDINE 20 MG TAB PO SCH (08:39)
[2019-10-12] MEDS: ASPIRIN 81 MG ENTERIC TAB PO SCH ×2 (08:39→21:30)
[2019-10-12] MEDS: DOCUSATE SODIUM 100 MG CAP PO SCH ×2 (08:39→21:30)
[2019-10-12] MEDS: MORPHINE 15 MG SA TAB PO SCH ×2 (08:40→21:31)
[2019-10-12] MEDS: HumaLOG INSULIN (NovoLOG) PER UNIT SC SCH ×4 (08:41→21:00)
[2019-10-12] MEDS: ENOXAPARIN 40 MG/0.4 ML SYRINGE (J1650) SC SCH (08:42)
[2019-10-12] MEDS: oxyCODONE 5MG TAB PO PRN ×2 (10:33→17:15)
[2019-10-12] MEDS: CYCLOBENZAPRINE 10 MG TAB PO PRN (12:26)
[2019-10-12] MEDS: traMADol 50 MG TAB PO PRN (12:27)
[2019-10-12 14:00] VITALS: BP 113/73
--- NOTE | 2019-10-12 14:54 | IPNPDOC ---
Date Seen The patient was seen on 10/12/19. Progress Note SUBJECTIVE: 54 y.o male w/ PMH of CKD, HTN, HLD, DM & chronic back pain was recently admitted for worsening chronic back pain and discharged yesterday. He was only home for a few hours & returned due to severe back pain. He has had chronic back pain for years which was well controlled up until a few weeks ago when it worsened after a fall. Imaging showed spinal stenosis, he was evaluated by Dr. Boland and epidural injections were recommended which he have worked well in the past. He was scheduled for an epidural injection tomorrow but couldn't tolerate the pain. He was restarted on his pain regimen prior to discharge and pain is reasonably well controlled at this time. He continues to have low back pain with radiation down his RLE with any movement. He denies any SOB, CP, N/V/D or abdominal pain. 10/12/19 Patient seen in the morning, reports moderate/severe low back pain w/ radiation down his RLE. He reports good pain control w/ current pain regimen, no other complaints. 10 point review of system is negative except for above. PHYSICAL EXAMINATION: VITAL SIGNS: Please see below. GENERAL: no distress HEENT: moist mucus membranes CARDIOVASCULAR: S1, S2 RESPIRATORY: clear to auscultation ABDOMINAL: soft, non-tender, non-distended, +BS EXTREMITIES: ROM intact NEUROLOGICAL: A&O x3, no focal deficits, RLE weakness due to pain PSYCHOLOGICAL: calm LABORATORY DATA, IMAGING STUDIES, MICROBIOLOGY: Please see below. ASSESSMENT AND PLAN: 54 y.o male w/ multiple medical comorbidities who has been readmitted for worsening chronic back pain. PROBLEMS: 1. chronic low back pain - recently worsened due to injury, imaging showing moderate/severe stenosis, evaluated by Dr. Boland and epidural injection was recommended, attempting to contact Anesthesiology for Epidural as per Ortho recs, unsuccessful so far, will attempt again later in the day. continue current pain regimen. 2. HTN - continue Norvasc, lisinopril & Metoprolol 3. DM - sliding scale insulin with meals & at bedtime 4. erythrocytosis - likely due to undiagnosed BENJAMIN/OHS, recommend outpatient sleep study, no signs/symptoms of hyperviscosity. 5. CKD - creatinine at baseline, will monitor 6. GERD - continue Pepcid & omeprazole DVT prophylaxis - Lovenox GI Prophylaxis - PPI/Pepcid VS, I&O, 24H, Fishbone Vital Signs/I&O Vital Signs Date Time Temp Pulse Resp B/P (MAP) Pulse Ox O2 Delivery O2 Flow Rate FiO2 10/12/19 12:57 18 Room Air 10/12/19 08:39 103 136/102 10/12/19 06:07 98.0 94 10/11/19 20:00 2.0 I&O- Last 24 Hours up to 6 AM 10/12/19 06:00 Intake Total 3356 ml Output Total 2350 ml Balance 1006 ml Laboratory Data 24H LABS Laboratory Tests 2 10/11/19 17:08: Bedside Glucose (Misc Panel) 210H 10/11/19 20:14: Bedside Glucose (Misc Panel) 211H 10/12/19 05:46: Nucleated Red Blood Cells % (auto) 0.0, Anion Gap 8, Glomerular Filtration Rate > 60.0, Calcium Level 9.3, Phosphorus Level 3.3, Magnesium Level 2.1 10/12/19 11:57: Bedside Glucose (Misc Panel) 230H CBC/BMP Laboratory Tests 10/12/19 05:46 ELLIS HOGAN MD Oct 12, 2019 14:54
[2019-10-12 21:26] VITALS: BP 119/78
[2019-10-12] MEDS: SIMVASTATIN 20 MG TAB PO SCH (21:31)
[2019-10-13] MEDS: CYCLOBENZAPRINE 10 MG TAB PO PRN (05:55)
[2019-10-13] MEDS: oxyCODONE 5MG TAB PO PRN ×2 (05:55→12:17)
[2019-10-13 06:28] VITALS: BP 124/78
[2019-10-13] MEDS: GABAPENTIN 300 MG CAP PO SCH (08:26)
[2019-10-13] MEDS: METOPROLOL TARTRATE 100 MG TAB PO SCH (08:26)
[2019-10-13] MEDS: lisinopriL 40 MG TAB PO SCH (08:26)
[2019-10-13] MEDS: ASPIRIN 81 MG ENTERIC TAB PO SCH (08:26)
[2019-10-13] MEDS: HumaLOG INSULIN (NovoLOG) PER UNIT SC SCH ×2 (08:26→12:17)
[2019-10-13] MEDS: DOCUSATE SODIUM 100 MG CAP PO SCH (08:26)
[2019-10-13] MEDS: MAGNESIUM OXIDE 400 MG TAB (MAG-OX) PO SCH (08:26)
[2019-10-13] MEDS: FAMOTIDINE 20 MG TAB PO SCH (08:26)
[2019-10-13] MEDS: OMEPRAZOLE 20 MG CAP PO SCH (08:26)
[2019-10-13 08:27] VITALS: BP 124/78
[2019-10-13] MEDS: amLODIPine 5 MG TAB PO SCH (08:27)
[2019-10-13] MEDS: MORPHINE 15 MG SA TAB PO SCH (08:27)
[2019-10-13] MEDS: ENOXAPARIN 40 MG/0.4 ML SYRINGE (J1650) SC SCH (08:28)
--- NOTE | 2019-10-13 13:28 | DS.PDOC ---
Discharge Summary General Date of Admission Oct 10, 2019 at 21:36 Date of Discharge 10/13/19 Attending Physician: ELLIS HOGAN MD Discharge Summary PROCEDURES PERFORMED DURING STAY: None. ADMITTING DIAGNOSES: 1. Intractable low back pain. DISCHARGE DIAGNOSES: 1. Intractable low back pain. COMPLICATIONS/CHIEF COMPLAINT: Intractable Low Back Pain. HISTORY OF PRESENT ILLNESS: 54-year-old male with multiple medical comorbidities including chronic back pain, was readmitted for intractable low back pain. Patient was discharged on the same day as admission, returned due to severe pain after a few hours. Patient was restarted on his previous pain regimen, which provided good relief, continue to have severe back pain as of yesterday. Upon examining the patient today, he reports that his pain resolved completely upon waking up this morning, ambulating well and cleared by physical therapy, requiri ng minimal pain control at this time. Patient will like to see pain management prior to being discharged, consult placed. Patient will follow-up with pain management physician for epidural injections in the outpatient setting, clinically and hemodynamically stable for discharge at this time. Patient is strongly advised to follow-up with pulmonary for sleep study as he likely has un diagnosed BENJAMIN/OHS. HOSPITAL COURSE: As above. DISCHARGE MEDICATIONS: Please see below. ALLERGIES: Please see below. PHYSICAL EXAMINATION: VITAL SIGNS: Please see below. GENERAL: no distress HEENT: moist mucus membranes CARDIOVASCULAR: S1, S2 RESPIRATORY: clear to auscultation ABDOMINAL: soft, non-tender, non-distended, +BS EXTREMITIES: ROM intact NEUROLOGICAL: A&O x3, no focal deficits PSYCHOLOGICAL: calm LABORATORY DATA: Please see below. PROGNOSIS: Fair ACTIVITY: As tolerated. DIET: Cardiac DISCHARGE PLAN: Follow with pulmonary pain management and PCP within 1-2 weeks DISPOSITION: Home. DISCHARGE INSTRUCTIONS: 1. As above. DISCHARGE CONDITION: Stable. TIME SPENT ON DISCHARGE: Greater than 33 minutes. Vital Signs/I&Os Vital Signs Date Time Temp Pulse Resp B/P (MAP) Pulse Ox O2 Delivery O2 Flow Rate FiO2 10/13/19 12:47 18 Room Air 10/13/19 08:27 2.0 10/13/19 08:27 107 124/78 10/13/19 06:28 98.3 98 I&O- Last 24 Hours up to 6 AM 10/13/19 05:59 Intake Total 1790 ml Output Total 0 ml Balance 1790 ml Laboratory Data Labs 24H Laboratory Tests 2 10/12/19 16:30: Bedside Glucose (Misc Panel) 248H 10/12/19 21:23: Bedside Glucose (Misc Panel) 240H 10/13/19 07:08: Bedside Glucose (Misc Panel) 215H 10/13/19 11:45: Bedside Glucose (Misc Panel) 247H FSBS Laboratory Tests Test 10/12/19 16:30 10/12/19 21:23 10/13/19 07:08 10/13/19 11:45 Range/Units Bedside Glucose (Misc Panel) 248 240 215 247 70-105 MG/DL Discharge Medications Scheduled Amlodipine Besylate (Amlodipine Besylate) 5 Mg Tablet, 5 MG PO DAILY, (Reported) Aspirin (Aspirin EC) 81 Mg Tablet.dr, 81 MG PO BID, (Reported) Empagliflozin (Jardiance) 10 Mg Tablet, 10 MG PO DAILY, (Reported) Famotidine (Famotidine) 40 Mg Tablet, 20 MG PO DAILY, (Reported) Fenofibrate,Micronized (Fenofibrate) 200 Mg Capsule, 200 MG PO QHS, (Reported) Gabapentin (Gabapentin) 600 Mg Tablet, 1,200 MG PO TID, (Reported) Glimepiride (Glimepiride) 4 Mg Tablet, 4 MG PO BID, (Reported) Lisinopril (Lisinopril) 40 Mg Tablet, 80 MG PO DAILY, (Reported) Magnesium Oxide (Magnesium Oxide) 400 Mg Tablet, 400 MG PO DAILY, (Reported) Metoprolol Tartrate (Metoprolol Tartrate) 100 Mg Tablet, 100 MG PO BID, (Reported) Omeprazole (Omeprazole) 20 Mg Capsule.dr, 20 MG PO DAILY, (Reported) Simvastatin (Zocor) 20 Mg Tablet, 20 MG PO QHS, (Reported) Scheduled PRN Cyclobenzaprine HCl (Cyclobenzaprine HCl) 10 Mg Tablet, 10 MG PO TID PRN for MUSCLE SPASMS, (Reported) Hydromorphone HCl (Dilaudid) 2 Mg Tablet, 2 MG PO QIDP PRN for pain, (Reported) Tramadol HCl (Tramadol HCl) 50 Mg Tablet, 100 MG PO TID PRN for PAIN, (Reported) Allergies Coded Allergies: bee venom protein (honey bee) (Verified Allergy, Severe, ANAPHYLAXIS, 10/04/19) spider venom (Verified Allergy, Severe, ANAPHYLAXIS, 10/04/19) ELLIS HOGAN MD Oct 13, 2019 13:28
[2019-10-13 14:00] VITALS: BP 119/77
== END 2019-10-13 14:45 | disposition home or self-care (01) | DRG 552 ==
LOC: M ED 20:46 → M ED INP 21:36 → ENRESERVDT 23:37 → ENRESERVTM 23:37 → M MS5PR 10-11 00:05
PROVIDERS: ADMIT Internal Medicine; ATTEND Internal Medicine
DX: M48.061 Spinal stenosis, lumbar region without neurogenic claudication (principal); R65.10 Systemic inflammatory response syndrome (SIRS) of non-infectious origin without acute organ dysfunction; Z68.41 Body mass index [BMI] 40.0-44.9, adult; E66.01 Morbid (severe) obesity due to excess calories; Z79.82 Long term (current) use of aspirin; Z79.899 Other long term (current) drug therapy; Z91.030 Bee allergy status; Z91.038 Other insect allergy status; I12.9 Hypertensive chronic kidney disease with stage 1 through stage 4 chronic kidney disease, or unspecified chronic kidney disease; E78.5 Hyperlipidemia, unspecified; N18.3 Chronic kidney disease, stage 3 (moderate); K21.9 Gastro-esophageal reflux disease without esophagitis; E11.9 Type 2 diabetes mellitus without complications; F17.210 Nicotine dependence, cigarettes, uncomplicated; D75.1 Secondary polycythemia

== ENCOUNTER → 2020-07-11 | Outpatient (CLI) | payer MEDICARE, MEDICAID ==
[~2020-07-11] MED LIST changes: +AMLO1TAB24 PO; -AMLO5TAB6 PO; +CYCL-707 PO; -CYCL10TA PO; +TRUL10IN SC
--- NOTE | 2020-07-11 07:56 | REP ---
INDICATION: EVAL SPLEEN SIZE, KIDNEY CYST VS MASS COMPARISON: None TECHNIQUE: Real time B-mode arizmendi scale ultrasound examination using curved array transducer. FINDINGS: Examination is significantly limited due to body habitus and technical factors. Liver demonstrates increased echotexture with poor through transmission suggesting fatty infiltration. No obvious focal hepatic lesion is identified. The gallbladder is partially contracted and without obvious gallstones or pericholecystic fluid. The common bile duct is upper limits of normal at 7 mm diameter without obvious obstruction by ultrasound. The pancreas is incompletely evaluated due to interposed bowel gas. The spleen is normal in contour, echotexture and size measuring 9.4 x 8.7 x 4.4 cm (splenic index: 360). Splenic calcifications are identified and suggest prior granulomatous disease. The bilateral kidneys are normal in reniform shape and echotexture without hydronephrosis or cystic changes. Right kidney measures 13.6 x 6.6 x 6.6 cm. Left kidney measures 14.0 x 6.8 x 5.9 cm. Abdominal aorta is incompletely evaluated due to overlying gas. No ascites identified. IMPRESSION: 1. Limited examination. 2. Hepatosteatosis. 3. No evidence for splenomegaly. 4. Contracted gallbladder without obvious gallstones, but CBD borderline dilated at 7 mm. Consider re-evaluation of the gallbladder and right upper quadrant by ultrasound with the patient fasting. <Electronically signed by Tomas Salguero > 07/11/20 [id number]
== END ==
LOC: M RAD 06:54
PROVIDERS: ATTEND Specialist
DX: K76.0 Fatty (change of) liver, not elsewhere classified (principal)

== ENCOUNTER → 2021-05-30 | Outpatient (REF) | payer MEDICARE, MEDICAID ==
[~2021-05-30] MED LIST changes: -LISI40TA PO; +LISI40TA4 PO; -MAGN400T3 PO; +MAGN400T33 PO
== END ==
LOC: M LAB REF 13:13
PROVIDERS: ATTEND Nurse Practitioner Family
DX: E83.42 Hypomagnesemia (principal)

== ENCOUNTER → 2022-03-20 | Outpatient (CLI) | payer MEDICARE, MEDICAID ==
[~2022-03-20] MED LIST changes: +AMIT25TA17; +DICY20TA20; -FENO200C PO; +FENO200C19 PO; +GLIM4TAB5; +INVO100T PO; +SIMV-253 PO; -ZOCO20TA PO
[2022-03-20 16:16] LABS: FREE T4 1.04 NG/DL (0.76-1.46); THYROID STIMULATING HORMONE 2.29 uIU/ML (0.358-3.740)
== END ==
LOC: M LAB 14:11
PROVIDERS: ATTEND Internal Medicine Gastroenterology
DX: R19.7 Diarrhea, unspecified (principal)

== ENCOUNTER → 2022-07-23 | Outpatient (REF) | payer MEDICARE, MEDICAID ==
[2022-07-23 16:59] LABS: ALBUMIN 3.7 G/DL (3.2-5.2); ALKALINE PHOSPHATASE 65 U/L (46-116); ALT/SGPT 23 U/L (7.0-40); AST/SGOT 29 U/L (<34); BILIRUBIN,TOTAL 0.4 MG/DL (0.3-1.2); BLOOD UREA NITROGEN 14 MG/DL (9-23); CALCIUM LEVEL 9.1 MG/DL (8.5-10.1); CARBON DIOXIDE LEVEL 25 MMOL/L (20-31); CHLORIDE LEVEL 105 MMOL/L (98-107); CHOLESTEROL LEVEL 155 MG/DL (<200); CHOLESTEROL RISK RATIO 4.59 (<5); GLOMERULAR FILTRATION RATE > 60.0 (>56); GLUCOSE, FASTING 211 MG/DL (60-100); HDL CHOLESTEROL 33.7 MG/DL (>40); LDL CHOLESTEROL 82.9 MG/DL (<100); NON-HDL-C 121 MG/DL; POTASSIUM SERUM 4.3 MMOL/L (3.5-5.1); SODIUM LEVEL 141 MMOL/L (136-145); TOTAL PROTEIN 6.8 G/DL (5.7-8.2); TRIGLYCERIDES LEVEL 192 MG/DL (<150)
[2022-07-23 18:43] LABS: HEMOGLOBIN A1c 9.2 % (4.0-6.0)
== END ==
LOC: M SFHCADAM 13:01
PROVIDERS: ATTEND Family Medicine
DX: E11.69 Type 2 diabetes mellitus with other specified complication (principal); E78.2 Mixed hyperlipidemia

== ENCOUNTER → 2022-09-21 | Outpatient (REF) | payer MEDICARE, MEDICAID ==
[~2022-09-21] MED LIST changes: -FENO200C19 PO; +FENO200C24 PO
[2022-09-21 15:29] LABS: ALBUMIN 3.8 G/DL (3.2-5.2); ALKALINE PHOSPHATASE 60 U/L (46-116); ALT/SGPT 25 U/L (7.0-40); AST/SGOT < 8 U/L (<34); BILIRUBIN,TOTAL 0.4 MG/DL (0.3-1.2); BLOOD UREA NITROGEN 15 MG/DL (9-23); CALCIUM LEVEL 9.3 MG/DL (8.5-10.1); CARBON DIOXIDE LEVEL 29 MMOL/L (20-31); CHLORIDE LEVEL 108 MMOL/L (98-107); CREATININE FOR GFR 1.08 MG/DL (0.70-1.30); GLOMERULAR FILTRATION RATE > 60.0 (>56); GLUCOSE, FASTING 204 MG/DL (60-100); POTASSIUM SERUM 4.2 MMOL/L (3.5-5.1); SODIUM LEVEL 144 MMOL/L (136-145); TOTAL PROTEIN 6.6 G/DL (5.7-8.2)
[2022-09-21 15:48] LABS: HEMOGLOBIN A1c 9.4 % (4.0-6.0)
== END ==
LOC: M SFHCADAM 11:31
PROVIDERS: ATTEND Family Medicine
DX: E11.69 Type 2 diabetes mellitus with other specified complication (principal)

== ENCOUNTER → 2022-12-26 | Outpatient (REF) | payer MEDICARE, MEDICAID ==
[2022-12-26 16:51] LABS: ALKALINE PHOSPHATASE 51 U/L (46-116); ALT/SGPT 41 U/L (7.0-40); AST/SGOT 35 U/L (<34); BILIRUBIN,TOTAL 0.7 MG/DL (0.3-1.2); BLOOD UREA NITROGEN 15 MG/DL (9-23); CALCIUM LEVEL 9.5 MG/DL (8.5-10.1); CARBON DIOXIDE LEVEL 25 MMOL/L (20-31); CHLORIDE LEVEL 104 MMOL/L (98-107); CREATININE FOR GFR 1.09 MG/DL (0.70-1.30); GLOMERULAR FILTRATION RATE > 60.0 (>56); GLUCOSE, FASTING 151 MG/DL (60-100); POTASSIUM SERUM 4.4 MMOL/L (3.5-5.1); SODIUM LEVEL 135 MMOL/L (136-145); TOTAL PROTEIN 6.6 G/DL (5.7-8.2)
== END ==
LOC: M SFHCADAM 13:55
PROVIDERS: ATTEND Family Medicine
DX: E11.65 Type 2 diabetes mellitus with hyperglycemia (principal)

== ENCOUNTER → 2023-02-26 | Outpatient (REF) | payer MEDICARE, MEDICAID ==
[2023-02-26 17:26] LABS: URIC ACID 5.7 MG/DL (3.7-9.2)
[2023-02-26 17:29] LABS: BLOOD UREA NITROGEN 13 MG/DL (9-23); CALCIUM LEVEL 8.9 MG/DL (8.5-10.1); CARBON DIOXIDE LEVEL 26 MMOL/L (20-31); CHLORIDE LEVEL 103 MMOL/L (98-107); CREATININE FOR GFR 1.08 MG/DL (0.70-1.30); GLOMERULAR FILTRATION RATE > 60.0 (>56); GLUCOSE, FASTING 245 MG/DL (60-100); MAGNESIUM LEVEL 2.1 MG/DL (1.8-2.4); PHOSPHORUS LEVEL 3.7 MG/DL (2.5-4.9); POTASSIUM SERUM 4.3 MMOL/L (3.5-5.1); PTH INTACT 47.8 PG/ML (18.5-88.0); SODIUM LEVEL 139 MMOL/L (136-145)
== END ==
LOC: M LABDRWAD 16:34
PROVIDERS: ATTEND Student in an Organized Health Care Education/Training Program
DX: E11.21 Type 2 diabetes mellitus with diabetic nephropathy (principal); M89.9 Disorder of bone, unspecified; E83.9 Disorder of mineral metabolism, unspecified; I12.9 Hypertensive chronic kidney disease with stage 1 through stage 4 chronic kidney disease, or unspecified chronic kidney disease

== ENCOUNTER → 2023-03-26 | Outpatient (REF) | payer MEDICARE, MEDICAID ==
[~2023-03-26] MED LIST changes: -AMIT25TA17; +AMIT25TA19
[2023-03-26 17:13] LABS: HEMOGLOBIN A1c 8.2 % (4.0-6.0)
== END ==
LOC: M SFHCADAM 13:32
PROVIDERS: ATTEND Physician Assistant Medical
DX: E11.22 Type 2 diabetes mellitus with diabetic chronic kidney disease (principal)

== ENCOUNTER → 2023-08-21 | Outpatient (REF) | payer MEDICARE, MEDICAID ==
[2023-08-21 17:30] LABS: BASO # 0.1 10^3/uL (0.0-0.2); BASO % 0.8 % (0.0-1.0); EOS # 0.3 10^3/uL (0.0-0.5); EOS % 2.6 % (0.0-3.0); HEMATOCRIT 59.2 % (42.0-52.0); LYMPH # 3.4 10^3/uL (1.5-5.0); LYMPH % 34.1 % (24.0-44.0); MEAN CORPUSCULAR HEMOGLOBIN 27.8 pg (27.0-33.0); MEAN CORPUSCULAR HGB CONC 32.1 g/dl (32.0-36.5); MEAN CORPUSCULAR VOLUME 86.5 fl (80.0-96.0); MONO % 10.4 % (2.0-8.0); NEUTROPHILS # 5.1 10^3/uL (1.5-8.5); NEUTROPHILS % 51.8 % (36.0-66.0); PLATELET COUNT, AUTOMATED 258 10^3/uL (150-450); RED BLOOD COUNT 6.84 10^6/uL (4.30-6.10); WHITE BLOOD COUNT 9.9 10^3/uL (4.0-10.0)
[2023-08-21 17:53] LABS: CREATININE, URINE 45.2 MG/DL; MALB URINE SIEMENS < 3.0 MG/L; MAU/CREAT RATIO 6.6 MCG/MG (0.0-30.0)
[2023-08-21 17:55] LABS: ALKALINE PHOSPHATASE 53 U/L (46-116); ALT/SGPT 27 U/L (7.0-40); AST/SGOT 21 U/L (<34); BILIRUBIN,TOTAL 0.5 MG/DL (0.3-1.2); BLOOD UREA NITROGEN 17 MG/DL (9-23); CALCIUM LEVEL 9.6 MG/DL (8.3-10.6); CARBON DIOXIDE LEVEL 29 MMOL/L (20-31); CHLORIDE LEVEL 107 MMOL/L (98-107); CHOLESTEROL LEVEL 167 MG/DL (<200); CHOLESTEROL RISK RATIO 5.56 (<5); CREATININE FOR GFR 1.13 MG/DL (0.70-1.30); GLOMERULAR FILTRATION RATE > 60.0 (>49); GLUCOSE, FASTING 160 MG/DL (74-106); LDL CHOLESTEROL 87.6 MG/DL (<100); POTASSIUM SERUM 4.4 MMOL/L (3.5-5.1); SODIUM LEVEL 142 MMOL/L (136-145); TRIGLYCERIDES LEVEL 247 MG/DL (<150)
[2023-08-21 17:57] LABS: THYROID STIMULATING HORMONE 3.937 uIU/ML (0.55-4.78)
== END ==
LOC: M SFHCADAM 15:30
PROVIDERS: ATTEND Family Medicine
DX: E11.65 Type 2 diabetes mellitus with hyperglycemia (principal); E78.2 Mixed hyperlipidemia

== ENCOUNTER → 2023-12-16 | Outpatient (REF) | payer MEDICARE, MEDICAID ==
[~2023-12-16] MED LIST changes: -ASPI-161 PO; +ASPI-615 PO
== END ==
LOC: M SFHCADAM 14:22
PROVIDERS: ATTEND Family Medicine
DX: E11.65 Type 2 diabetes mellitus with hyperglycemia (principal)

== ENCOUNTER → 2024-03-05 | Outpatient (REF) | payer MEDICARE, MEDICAID ==
[2024-03-05 19:14] LABS: ALBUMIN 4.2 G/DL (3.2-5.2); ALKALINE PHOSPHATASE 59 U/L (46-116); ALT/SGPT 23 U/L (7.0-40); AST/SGOT 15 U/L (<34); BILIRUBIN,TOTAL 0.7 MG/DL (0.3-1.2); BLOOD UREA NITROGEN 18 MG/DL (9-23); CARBON DIOXIDE LEVEL 26 MMOL/L (20-31); CHLORIDE LEVEL 103 MMOL/L (98-107); CREATININE FOR GFR 0.98 MG/DL (0.70-1.30); GLOMERULAR FILTRATION RATE > 60.0 (>49); GLUCOSE, FASTING 271 MG/DL (74-106); POTASSIUM SERUM 4.6 MMOL/L (3.5-5.1); SODIUM LEVEL 137 MMOL/L (136-145)
[2024-03-05 19:17] LABS: HEMOGLOBIN A1c 11.5 % (4.0-6.0)
== END ==
LOC: M SFHCADAM 12:12
PROVIDERS: ATTEND Family Medicine
DX: E11.65 Type 2 diabetes mellitus with hyperglycemia (principal)

== ENCOUNTER → 2024-05-08 | Outpatient (REF) | payer MEDICARE, MEDICAID ==
[~2024-05-08] MED LIST changes: +GABA-1490 PO; -GABA600T4 PO
[2024-05-08 13:31] LABS: ALBUMIN 3.8 G/DL (3.2-5.2); ALKALINE PHOSPHATASE 52 U/L (46-116); ALT/SGPT 23 U/L (7.0-40); AST/SGOT 16 U/L (<34); BILIRUBIN,TOTAL 0.5 MG/DL (0.3-1.2); BLOOD UREA NITROGEN 17 MG/DL (9-23); CARBON DIOXIDE LEVEL 29 MMOL/L (20-31); CHLORIDE LEVEL 106 MMOL/L (98-107); CREATININE FOR GFR 1.02 MG/DL (0.70-1.30); GLOMERULAR FILTRATION RATE > 60.0 (>49); GLUCOSE, FASTING 240 MG/DL (74-106); POTASSIUM SERUM 4.4 MMOL/L (3.5-5.1); SODIUM LEVEL 138 MMOL/L (136-145); TOTAL PROTEIN 6.7 G/DL (5.7-8.2)
[2024-05-08 13:56] LABS: HEMOGLOBIN A1c 9.2 % (4.0-6.0)
== END ==
LOC: M SFHCADAM 09:20
PROVIDERS: ATTEND Family Medicine
DX: E11.65 Type 2 diabetes mellitus with hyperglycemia (principal)

== ENCOUNTER → 2024-08-06 | Outpatient (CLI) | payer MEDICARE, MEDICAID | LOC: M RAD 14:45 | PROVIDERS: ATTEND Family Medicine | DX: Z12.2 Encounter for screening for malignant neoplasm of respiratory organs (principal); F17.219 Nicotine dependence, cigarettes, with unspecified nicotine-induced disorders ==

== ENCOUNTER → 2024-09-16 | Outpatient (REF) | payer MEDICARE, MEDICAID ==
[2024-09-16 19:03] LABS: ALBUMIN 3.9 G/DL (3.2-5.2); ALKALINE PHOSPHATASE 47 U/L (40-129); ALT/SGPT 29 U/L (7.0-40); AST/SGOT 24 U/L (<34); BILIRUBIN,TOTAL 0.5 MG/DL (0.3-1.2); BLOOD UREA NITROGEN 17 MG/DL (9-23); CALCIUM LEVEL 9.7 MG/DL (8.3-10.6); CARBON DIOXIDE LEVEL 28 MMOL/L (20-31); CHLORIDE LEVEL 102 MMOL/L (98-107); CREATININE FOR GFR 1.05 MG/DL (0.70-1.30); GLOMERULAR FILTRATION RATE > 60.0 (>49); GLUCOSE, FASTING 217 MG/DL (74-106); POTASSIUM SERUM 4.5 MMOL/L (3.5-5.1); SODIUM LEVEL 141 MMOL/L (136-145); TOTAL PROTEIN 7.1 G/DL (5.7-8.2)
[2024-09-16 19:13] LABS: HEMOGLOBIN A1c 10.2 % (4.0-6.0)
== END ==
LOC: M SFHCADAM 15:10
PROVIDERS: ATTEND Family Medicine
DX: E11.65 Type 2 diabetes mellitus with hyperglycemia (principal)

== ENCOUNTER → 2024-11-13 | Outpatient (CLI) | payer MEDICARE, MEDICAID ==
[2024-11-13 17:29] LABS: TOTAL PROTEIN,RANDOM URINE 7.1 MG/DL (0.0-14.0)
[2024-11-13 17:34] LABS: CREATININE, URINE 41.6 MG/DL; CREATININE,RANDOM URINE 41.6 MG/DL; MALB URINE SIEMENS < 3.0 MG/L
[2024-11-13 17:38] LABS: BLOOD UREA NITROGEN 16 MG/DL (9-23); CALCIUM LEVEL 9.4 MG/DL (8.3-10.6); CARBON DIOXIDE LEVEL 30 MMOL/L (20-31); CHLORIDE LEVEL 101 MMOL/L (98-107); CREATININE FOR GFR 1.03 MG/DL (0.70-1.30); GLOMERULAR FILTRATION RATE > 60.0 (>49); GLUCOSE, FASTING 286 MG/DL (74-106); POTASSIUM SERUM 4.5 MMOL/L (3.5-5.1); SODIUM LEVEL 139 MMOL/L (136-145)
[2024-11-13 17:45] LABS: URIC ACID 4.1 MG/DL (3.7-9.2)
== END ==
LOC: M ADAMS 13:03
PROVIDERS: ATTEND Student in an Organized Health Care Education/Training Program
DX: N18.2 Chronic kidney disease, stage 2 (mild) (principal); E11.21 Type 2 diabetes mellitus with diabetic nephropathy; I12.9 Hypertensive chronic kidney disease with stage 1 through stage 4 chronic kidney disease, or unspecified chronic kidney disease; Z13.89 Encounter for screening for other disorder

== ENCOUNTER → 2025-02-25 | Outpatient (REF) | payer MEDICARE, MEDICAID ==
[~2025-02-25] MED LIST changes: +LISI40TA10 PO; -LISI40TA4 PO
[2025-02-25 17:40] LABS: CHOLESTEROL LEVEL 159.0 MG/DL (<200); CHOLESTEROL RISK RATIO 5.67 (<5); LDL CHOLESTEROL 81.4 MG/DL (<100); NON-HDL-C 131.0 MG/DL; TRIGLYCERIDES LEVEL 248.0 MG/DL (<150)
== END ==
LOC: M LABDRWAD 16:43
PROVIDERS: ATTEND Nurse Practitioner
DX: I10 Essential (primary) hypertension (principal); E78.2 Mixed hyperlipidemia; R94.31 Abnormal electrocardiogram [ECG] [EKG]

== ENCOUNTER → 2025-04-19 | Outpatient (REF) | payer MEDICARE, MEDICAID ==
[2025-04-19 17:21] LABS: ALT/SGPT 32.0 U/L (7.0-40); AST/SGOT 27.0 U/L (<34); CALCIUM LEVEL 9.3 MG/DL (8.3-10.6); CARBON DIOXIDE LEVEL 28.0 MMOL/L (20-31); CHLORIDE LEVEL 105.0 MMOL/L (98-107); CREATININE FOR GFR 1.01 MG/DL (0.70-1.30); GLOMERULAR FILTRATION RATE 84.1 (>49); POTASSIUM SERUM 4.7 MMOL/L (3.5-5.1); SODIUM LEVEL 143.0 MMOL/L (136-145)
[2025-04-19 17:50] LABS: ESTIMATED AVERAGE GLUCOSE 237.0 MG/DL (60-110)
== END ==
LOC: M SFHCADAM 11:15
PROVIDERS: ATTEND Family Medicine
DX: E11.22 Type 2 diabetes mellitus with diabetic chronic kidney disease (principal); N18.9 Chronic kidney disease, unspecified